=== PATIENT | female | born 1940 | race Hispanic/Latino ===

== ENCOUNTER → 2017-08-23 | Outpatient (CLI) | payer OTHER ==
[~2017-08-23] MED LIST: ACET-66 PO; BENA40TA9 PO; CEPH500T PO; CHOL200074 PO; CINN500C PO; CRAN200C PO; FLUT9.9S NS; FURO40TA5 PO; GABA-531 PO; GLIM4TAB3 PO; LATA2.5D2 OU; OMEP20CA10 PO; OXYB5POW MC; POTA99TA25 PO; PRED10TA3 PO; SIMV10TA6 PO; TRAM50TA4 PO; amlodipine PO
== END | disposition home or self-care (01) ==
LOC: RAH 09:45
PROVIDERS: ATTEND Family Medicine
DX: I51.7 Cardiomegaly (principal); R06.02 Shortness of breath
CPT/HCPCS: 93306

== ENCOUNTER → 2018-02-02 | Outpatient (CLI) | payer OTHER | END | disposition home or self-care (01) | LOC: RAH 11:06 | PROVIDERS: ATTEND Family Medicine | DX: Z12.31 Encounter for screening mammogram for malignant neoplasm of breast (principal) | CPT/HCPCS: 77067 ==

== ENCOUNTER 2018-12-25 19:40 | Inpatient (IN) | payer OTHER ==
[~2018-12-25] VITALS: Ht 160 cm; Wt 98.7 kg
[~2018-12-25 19:40] MED LIST changes: -GLIM4TAB3 PO; +GLIM4TAB5 PO; +OMEP-50 PO; -OMEP20CA10 PO; -SIMV10TA6 PO; +SIMV10TA97 PO
[2018-12-25 20:13] LABS: APPEARANCE,URINE CLOUDY (CLEAR); BILIRUBIN,URINE NEGATIVE (NEGATIVE); COLOR,URINE OTHER (YELLOW); GLUCOSE, URINE (UA) NEGATIVE (NEGATIVE); KETONES,URINE NEGATIVE (NEGATIVE); LEUKOCYTE ESTERASE ,URINE LARGE (NEGATIVE); NITRATE,URINE POSITIVE (NEGATIVE); OCCULT BLOOD,URINE LARGE (NEGATIVE); PROTEIN,URINE 100 mg/dL (NEGATIVE); UROBILINOGEN,URINE 0.2 mg/dL (0.2-1.0)
[2018-12-25] MEDS ORDERED: SODIUM CHLORIDE 0.9% 1000ML 1,000 ML IV ONE (20:22)
[2018-12-25] MEDS ORDERED: KETOROLAC TROMETHAMINE 30MG/ML ONE (20:22)
[2018-12-25 20:27] LABS: BASOPHILS % (AUTO) 0.4 % (0.0-5.0); EOSINOPHILS % (AUTO) 0.3 % (0.0-8.0); HEMATOCRIT 32.8 % (36-48); LYMPHOCYTES % (AUTO) 12.9 % (21.0-51.0); MEAN CORPUSCULAR HEMOGLOBIN 30.2 pg (27.0-33.0); MEAN CORPUSCULAR HGB CONC 34.2 g/dL (32.0-36.0); MEAN CORPUSCULAR VOLUME 88.2 fL (79-99); MONOCYTES % (AUTO) 8.6 % (3.0-13.0); NEUTROPHILS % (AUTO) 77.8 % (40.0-77.0); PLATELET COUNT (AUTO) 246 K/uL (130-400); RED BLOOD CELL COUNT(AUTO) 3.72 MIL/uL (4.00-5.50); RED CELL DISTRIBUTION WIDTH 13.3 % (11.0-15.5); WHITE BLOOD COUNT (AUTO) 12.6 K/uL (4.8-10.8)
[2018-12-25 20:41] LABS: CARBON DIOXIDE 21 mmol/L (21-32); CHLORIDE 104 mmol/L (101-111); CREATININE 1.5 mg/dL (0.5-1.5); GLOMERULAR FILTR. RATE CALC 36 mL/min (>60); GLUCOSE,RANDOM 254 mg/dL (70-105); POTASSIUM 4.6 mmol/L (3.5-5.1); SODIUM SERUM 138 mmol/L (136-145); UREA NITROGEN, BLOOD 47 mg/dL (7-18)
[2018-12-25] MEDS ORDERED: CEFTRIAXONE SODIUM 2 GM VIAL ONE (20:41)
[2018-12-25 20:49] LABS: BACTERIA,URINE Moderate /HPF (None Seen); MUCUS,URINE Few LPF (None Seen); SQUAMOUS EPITHELIAL CELL,UR 0-2 /HPF (0-2); WBC,URINE 26-50 /HPF (0-1)
[2018-12-25 20:53] LABS: ALANINE AMINOTRANSFERASE 24 U/L (12-78); ALBUMIN 3.5 g/dL (3.5-5.0); ASPARTATE AMINOTRANSFERASE 22 U/L (10-37); BILIRUBIN,TOTAL 0.6 mg/dL (0.2-1.0); CREATINE KINASE, TOTAL 139 U/L (21-232); MYOGLOBIN 233 ng/mL (10-92); TOTAL PROTEIN, SERUM 7.4 g/dL (6.0-8.3); TROPONIN I < 0.04 ng/mL (0.00-0.06)
[2018-12-25 20:54] LABS: INR 0.98 (0.85-1.15); PARTIAL THROMBOPLASTIN TIME 30.2 SEC (26.3-35.5); PROTHROMBIN TIME 10.3 SEC (9.6-11.6)
[2018-12-25] MEDS ORDERED: VANCOMYCIN 1GM+NS 250ML 250 ML IV ONE (21:42)
[2018-12-25 22:45] VITALS: BP 154/63
[2018-12-25] MEDS ORDERED: ACETAMINOPHEN 325 MG TAB PO PRN (22:45)
[2018-12-25] MEDS ORDERED: ZOSYN 3.375GM+NS 50ML 50 ML IV ONE (22:58)
[2018-12-25] MEDS: SODIUM CHLORIDE 0.9% 1000ML 1,000 ML IV SCH (23:28)
[2018-12-26 03:41] VITALS: BP 158/73
[2018-12-26 08:00] VITALS: BP 161/71
[2018-12-26] MEDS ORDERED: ACET-2743 PO (11:27)
[2018-12-26] MEDS ORDERED: ASPI-555 PO (11:27)
[2018-12-26] MEDS ORDERED: GABA-529 PO (11:27)
[2018-12-26] MEDS ORDERED: TURM500C9 PO (11:27)
[2018-12-26] MEDS: SODIUM CHLORIDE 0.9% 1000ML 1,000 ML IV SCH ×3 (11:35→23:49)
[2018-12-26 12:00] VITALS: BP 166/91
[2018-12-26] MEDS ORDERED: NITROGLYCERIN 0.4 MG SL TAB SL PRN (12:15)
[2018-12-26] MEDS ORDERED: POTASSIUM CHLORIDE 20MEQ/100ML 100 ML IV PRN (12:15)
[2018-12-26] MEDS ORDERED: ONDANSETRON HCL 4 MG/2 ML VIAL IV PRN (12:15)
[2018-12-26] MEDS ORDERED: LACTULOSE 20 GM/30 ML UDCUP PO PRN (12:15)
[2018-12-26] MEDS ORDERED: MAG HYDROX/AL HYDROX/SIMETH ES 30 ML SUSP UDCUP PO PRN (12:15)
[2018-12-26] MEDS ORDERED: LIDOCAINE HCL-MPF 1% 2ML VIAL IV PRN (12:15)
[2018-12-26] MEDS ORDERED: ZOLPIDEM TARTRATE 5 MG TAB PO PRN (12:15)
[2018-12-26] MEDS ORDERED: GUAIFENESIN-DM 200/20 MG 10 ML PO PRN (12:15)
[2018-12-26] MEDS ORDERED: POTASSIUM CHLORIDE 10% ELIXIR 20 MEQ/15 ML UDCUP PO PRN (12:15)
[2018-12-26] MEDS ORDERED: DiphenhydrAMINE HCL 50 MG/ML VIAL IV PRN (12:15)
[2018-12-26] MEDS ORDERED: GLUCAGON 1MG KIT 1 MG ML IM PRN (12:15)
[2018-12-26] MEDS ORDERED: DEXTROSE 50%-WATER 50 ML DISP.SYRIN IV PRN (12:15)
[2018-12-26 16:00] VITALS: BP 148/93
[2018-12-26] MEDS: CEFTRIAXONE SODIUM 1 GM IV SCH (16:03)
[2018-12-26] MEDS: PHENAZOPYRIDINE HCL 200 MG TABLET PO SCH ×2 (16:03→20:57)
--- NOTE | 2018-12-26 16:07 | NUR ---
INITIAL MET [facility] AT BEDSIDE; AAOX3, NO DME, DRIVES, INDP, LIVES WITH DAUGHTER BRANDON WHO WILL PROVIDE TRANSPORT PT W HX OF RECURRENT UTI'S ADVISED PT RE AIU. WILL FOLLOW Addendum: 12/26/18 at 1727 by PIERCE JEREZ RN CM Amended: Links added.
[2018-12-26] MEDS: INSULIN HUMULIN R 100 UNIT/ML 3ML SQ SCH ×2 (16:30→20:18)
[2018-12-26 19:15] VITALS: BP 153/52
[2018-12-26] MEDS: DOCUSATE SODIUM 100 MG CAP PO SCH (20:58)
[2018-12-26] MEDS: HEPARIN SODIUM 5000UNIT/ML 1ML VIAL SQ SCH (21:04)
[2018-12-26 23:28] VITALS: BP 128/64
[2018-12-27 03:25] VITALS: BP 138/58
[2018-12-27 05:28] LABS: BASOPHILS % (AUTO) 0.5 % (0.0-5.0); EOSINOPHILS % (AUTO) 1.1 % (0.0-8.0); HEMATOCRIT 28.5 % (36-48); LYMPHOCYTES % (AUTO) 25.6 % (21.0-51.0); MEAN CORPUSCULAR HEMOGLOBIN 30.1 pg (27.0-33.0); MEAN CORPUSCULAR HGB CONC 33.9 g/dL (32.0-36.0); MEAN CORPUSCULAR VOLUME 88.7 fL (79-99); MONOCYTES % (AUTO) 9.9 % (3.0-13.0); NEUTROPHILS % (AUTO) 62.9 % (40.0-77.0); PLATELET COUNT (AUTO) 222 K/uL (130-400); RED BLOOD CELL COUNT(AUTO) 3.21 MIL/uL (4.00-5.50); RED CELL DISTRIBUTION WIDTH 13.5 % (11.0-15.5); WHITE BLOOD COUNT (AUTO) 10.4 K/uL (4.8-10.8)
[2018-12-27 05:41] LABS: HEMOGLOBIN A1C 6.9 % (4.0-6.0)
[2018-12-27 05:55] LABS: CREATININE 1.3 mg/dL (0.5-1.5); POTASSIUM 3.6 mmol/L (3.5-5.1)
[2018-12-27] MEDS: INSULIN HUMULIN R 100 UNIT/ML 3ML SQ SCH ×4 (06:57→21:00)
[2018-12-27 08:00] VITALS: BP 149/65
--- NOTE | 2018-12-27 08:05 | NUR ---
Called CT Scan regarding CT abd/pelvis with and without contrast to notify that patient had 1 glass of water to drink this morning and if okay to proceed with exam or need to delay with NPO status. 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
[2018-12-27] MEDS ORDERED: IOHEXOL-350 75 ML VIAL IV ONE (08:22)
[2018-12-27 12:00] VITALS: BP 133/71
[2018-12-27] MEDS: FAMOTIDINE 20MG TAB 20 MG TAB PO SCH (12:00)
[2018-12-27] MEDS: PHENAZOPYRIDINE HCL 200 MG TABLET PO SCH ×3 (12:00→21:30)
[2018-12-27] MEDS: DOCUSATE SODIUM 100 MG CAP PO SCH ×2 (12:01→21:30)
[2018-12-27] MEDS: HEPARIN SODIUM 5000UNIT/ML 1ML VIAL SQ SCH ×2 (12:05→21:31)
[2018-12-27] MEDS: CEFTRIAXONE SODIUM 1 GM IV SCH (12:07)
--- NOTE | 2018-12-27 14:57 | NUR ---
Per Dr. Morgan with [facility], notify Dr. Connolly of Ct results and for recommendations of antibiotics for discharge.
[2018-12-27 16:00] VITALS: BP 187/80
[2018-12-27] MEDS: HYDRALAZINE HCL 20 MG/ML VIAL IV PRN (16:26)
--- NOTE | 2018-12-27 17:30 | NUR ---
Dr. Connolly stated antibiotic recommendation to come from [facility]. Anuradha AUTOCAD OPERATOR for [facility] notified and will put in orders for discharge and antibiotics. Family notified and had concerns of results of CT Scan. Requested that results be provided prior to discharge. Anuradha notified and stated that Dr. Connolly, ordering physician for CT Scan, could provide results to patient and family. Family in agreement.
--- NOTE | 2018-12-27 18:28 | NUR ---
Received notification from Anuradha Ricci NP, that after speaking with Dr. Morgan, to hold discharge at this time.
[2018-12-27 19:20] VITALS: BP 160/72
[2018-12-27] MEDS: POTASSIUM CHLORIDE 20 MEQ ERTAB PO PRN ×2 (21:30→22:50)
[2018-12-27] MEDS: SODIUM CHLORIDE 0.9% 1000ML 1,000 ML IV SCH (21:38)
[2018-12-28 00:11] VITALS: BP 138/69
[2018-12-28 04:30] VITALS: BP 159/80
[2018-12-28 05:59] LABS: MEAN CORPUSCULAR HEMOGLOBIN 30.6 pg (27.0-33.0); MEAN CORPUSCULAR HGB CONC 34.4 g/dL (32.0-36.0); MEAN CORPUSCULAR VOLUME 88.8 fL (79-99); PLATELET COUNT (AUTO) 248 K/uL (130-400); RED CELL DISTRIBUTION WIDTH 13.2 % (11.0-15.5); WHITE BLOOD COUNT (AUTO) 10.2 K/uL (4.8-10.8)
[2018-12-28 06:01] LABS: CREATININE 1.1 mg/dL (0.5-1.5); POTASSIUM 4.5 mmol/L (3.5-5.1)
[2018-12-28 08:00] VITALS: BP 159/77
[2018-12-28] MEDS: DOCUSATE SODIUM 100 MG CAP PO SCH (10:35)
[2018-12-28] MEDS: FAMOTIDINE 20MG TAB 20 MG TAB PO SCH (10:35)
[2018-12-28] MEDS: PHENAZOPYRIDINE HCL 200 MG TABLET PO SCH (10:35)
[2018-12-28] MEDS: HEPARIN SODIUM 5000UNIT/ML 1ML VIAL SQ SCH (10:37)
[2018-12-28] MEDS: SODIUM CHLORIDE 0.9% 1000ML 1,000 ML IV SCH (10:51)
--- NOTE | 2018-12-28 11:01 | NUR ---
1033 had IM Letter signed by pt,faxed IM Letter to [id number] and placed in chart under consent tab
[2018-12-28 12:00] VITALS: BP 155/69
[2018-12-28] MEDS ORDERED: SODIUM CHLORIDE 0.9% 50 ML IV ONE (12:16)
[2018-12-28] MEDS: CEFTRIAXONE SODIUM 1 GM IV SCH (13:22)
[2018-12-28 16:00] VITALS: BP 174/76
[2018-12-28] MEDS: HYDRALAZINE HCL 20 MG/ML VIAL IV PRN (17:22)
--- NOTE | 2018-12-28 19:05 | NUR ---
Discharge instructions reviewed, medication order instructions provided and due to being after hours, follow up appointments were not able to be scheduled. Patient and daughter provided Phone numbers and addresses for Dr. Danita Wild for follow up to be scheduled in 2-3 days, Dr. Vitaliy Connolly for follow up to be scheduled in [address] Natty Hilliard for consultation to be scheduled for 1 week. Patient and daughter verbalized understanding of instructions and importance of following up with all physicians as ordered. Patient instructed to complete full course of antibiotic therapy as prescribed for 14 days. Patient assisted downstairs via wheelchair accompanied by daughter.
== END 2018-12-28 19:00 | disposition home or self-care (01) | DRG 872 ==
LOC: EDH 19:40 → EDHIP 21:47 → OBSVTOIN 21:47 → 3BH 22:29
PROVIDERS: ADMIT Internal Medicine Pulmonary Disease; ATTEND Internal Medicine Pulmonary Disease
DX: A41.50 Gram-negative sepsis, unspecified (principal); N13.6 Pyonephrosis; N30.21 Other chronic cystitis with hematuria; N18.9 Chronic kidney disease, unspecified; E11.22 Type 2 diabetes mellitus with diabetic chronic kidney disease; I12.9 Hypertensive chronic kidney disease with stage 1 through stage 4 chronic kidney disease, or unspecified chronic kidney disease; E78.5 Hyperlipidemia, unspecified; K21.9 Gastro-esophageal reflux disease without esophagitis; H40.9 Unspecified glaucoma; Z96.659 Presence of unspecified artificial knee joint; E78.00 Pure hypercholesterolemia, unspecified; E66.9 Obesity, unspecified; B96.20 Unspecified Escherichia coli [E. coli] as the cause of diseases classified elsewhere; N83.209 Unspecified ovarian cyst, unspecified side; Z87.440 Personal history of urinary (tract) infections; Z90.710 Acquired absence of both cervix and uterus; Z98.51 Tubal ligation status; Z68.38 Body mass index [BMI] 38.0-38.9, adult; Z88.1 Allergy status to other antibiotic agents; Z88.5 Allergy status to narcotic agent; Z88.8 Allergy status to other drugs, medicaments and biological substances; Z83.3 Family history of diabetes mellitus; Z79.899 Other long term (current) drug therapy; Z79.84 Long term (current) use of oral hypoglycemic drugs; Z79.82 Long term (current) use of aspirin
CPT/HCPCS: 36415; 70450; 71045; 74178; 80048; 80053; 81001; 82550; 82948; 83036; 83605; 83874; 84145; 84484; 85025; 85027; 85610; 85730; 87040; 87077; 87088; 87186; 93005; G0378; J0360; J0696; J1644; J1885; J2405; J2543; J3370; J7030; Q9967

== ENCOUNTER 2020-02-08 13:58 | Observation (INO) | payer MEDICARE, OTHER ==
[~2020-02-08 13:58] MED LIST changes: -ACET-66 PO; +ASPI-556 PO; -CEPH500T PO; -CRAN200C PO; -FURO40TA5 PO; +GABA-529 PO; -GABA-531 PO; +GLIM4TAB36 PO; -GLIM4TAB5 PO; +LATA2.5D14 OU; -LATA2.5D2 OU; -OMEP-50 PO; +OMEP20CA12 PO; -POTA99TA25 PO; -PRED10TA3 PO; -TRAM50TA4 PO; +TURM500C9 PO; -amlodipine PO
[2020-02-08 14:43] LABS: BASOPHILS % (AUTO) 0.5 % (0.0-5.0); EOSINOPHILS % (AUTO) 0.6 % (0.0-8.0); HEMATOCRIT 33.9 % (36-48); LYMPHOCYTES % (AUTO) 22.7 % (21.0-51.0); MEAN CORPUSCULAR HGB CONC 33.6 g/dL (32.0-36.0); MEAN CORPUSCULAR VOLUME 89.2 fL (79-99); MONOCYTES % (AUTO) 6.8 % (3.0-13.0); PLATELET COUNT (AUTO) 173 K/uL (130-400); RED CELL DISTRIBUTION WIDTH 12.5 % (11.0-15.5); WHITE BLOOD COUNT (AUTO) 8.1 K/uL (4.8-10.8)
[2020-02-08 14:55] LABS: CREATININE 1.4 mg/dL (0.5-1.5)
[2020-02-08 14:59] LABS: ALBUMIN 3.7 g/dL (3.5-5.0); BILIRUBIN,TOTAL 0.5 mg/dL (0.2-1.0); TOTAL PROTEIN, SERUM 6.5 g/dL (6.0-8.3)
[2020-02-08 15:19] LABS: INR 0.93 (0.85-1.15)
[2020-02-08 15:20] LABS: PARTIAL THROMBOPLASTIN TIME 26.4 SEC (26.3-35.5)
[2020-02-08] MEDS ORDERED: ACETAMINOPHEN 325 MG TAB PO PRN ×4 (18:00→18:15)
[2020-02-08] MEDS ORDERED: ONDANSETRON HCL 4 MG/2 ML VIAL IVP PRN (18:00)
[2020-02-08] MEDS ORDERED: ONDANSETRON HCL 4 MG/2 ML VIAL IV PRN (18:15)
[2020-02-08] MEDS ORDERED: DIPHENHYDRAMINE HCL 25 MG CAPSULE PO PRN (18:15)
[2020-02-08] MEDS ORDERED: NITROGLYCERIN 0.4 MG SL TAB SL PRN (18:15)
[2020-02-08] MEDS ORDERED: ACETAMINOPHEN-CODEINE 300/30MG TAB PO PRN ×2 (18:15→18:30)
[2020-02-08] MEDS ORDERED: GUAIFENESIN-DM 200/20 MG 10 ML PO PRN (18:15)
[2020-02-08] MEDS ORDERED: MAG HYDROX/AL HYDROX/SIMETH ES 30 ML SUSP UDCUP PO PRN (18:15)
[2020-02-08] MEDS ORDERED: ASPIRIN 81MG TAB.CHEW ONE (18:20)
[2020-02-08] MEDS ORDERED: MORPHINE SULFATE 2 MG/ML 1ML SYG IVP PRN (18:30)
[2020-02-08 19:19] LABS: CREATINE KINASE, TOTAL 97 U/L (21-232); MYOGLOBIN 116 ng/mL (10-92); TROPONIN I < 0.04 ng/mL (0.00-0.06)
[2020-02-08] MEDS ORDERED: FAMOTIDINE 20MG TAB 20 MG TAB ONE (20:01)
[2020-02-08] MEDS ORDERED: METOPROLOL TARTRATE 25 MG TAB ONE (20:01)
[2020-02-08] MEDS ORDERED: METOPROLOL TARTRATE 25 MG TAB PO SCH ×2 (21:00)
[2020-02-08] MEDS ORDERED: FAMOTIDINE 20MG TAB 20 MG TAB PO SCH (21:00)
[2020-02-09] MEDS ORDERED: ASPIRIN 81 MG EC TAB PO SCH (09:00)
[2020-02-09] MEDS ORDERED: ASPIRIN 81MG TAB.CHEW PO SCH (09:00)
[2020-02-09] MEDS ORDERED: ENOXAPARIN SODIUM 40 MG/0.4 ML SYRINGE SQ SCH (09:00)
== END 2020-02-08 21:28 | disposition left against medical advice (07) ==
LOC: EDH 13:58 → INTOOBSV 17:20 → EDHIP 17:20
PROVIDERS: ADMIT Hospitalist; ATTEND Hospitalist
DX: R07.89 Other chest pain (principal); E11.65 Type 2 diabetes mellitus with hyperglycemia; E66.01 Morbid (severe) obesity due to excess calories; I10 Essential (primary) hypertension; E78.00 Pure hypercholesterolemia, unspecified; Z90.710 Acquired absence of both cervix and uterus; Z79.82 Long term (current) use of aspirin; Z79.84 Long term (current) use of oral hypoglycemic drugs; Z79.899 Other long term (current) drug therapy; Z88.5 Allergy status to narcotic agent; Z88.1 Allergy status to other antibiotic agents; Z88.8 Allergy status to other drugs, medicaments and biological substances
CPT/HCPCS: 36415; 71045; 80053; 82550; 83874; 84484 ×2; 85025; 85610; 85730; 93005 ×2; 99285; G0378 ×3

== ENCOUNTER → 2020-03-27 | Outpatient (CLI) | payer MEDICARE ==
[~2020-03-27] MED LIST changes: +REGADENOSON 0.4 MG/5 ML PF SYG IVP SCH
== END | disposition home or self-care (01) ==
LOC: RAH 08:33
PROVIDERS: ATTEND Internal Medicine
DX: I10 Essential (primary) hypertension (principal); R06.09 Other forms of dyspnea; R53.83 Other fatigue; R07.9 Chest pain, unspecified
CPT/HCPCS: 78452; 93017; 96374; A9500 ×2; J2785

== ENCOUNTER → 2020-03-28 | Outpatient (CLI) | payer MEDICARE ==
[~2020-03-28] MED LIST changes: -REGADENOSON 0.4 MG/5 ML PF SYG IVP SCH
== END | disposition home or self-care (01) ==
LOC: RAH 09:56
PROVIDERS: ATTEND Internal Medicine
DX: R01.1 Cardiac murmur, unspecified (principal)
CPT/HCPCS: 93306; 93356

== ENCOUNTER 2020-09-06 19:23 | Emergency (ER) | payer MEDICARE ==
[~2020-09-06] VITALS: Ht 152.4 cm; Wt 102.5 kg
[2020-09-06 19:25] VITALS: BP 200/73
[2020-09-06 20:03] LABS: BASOPHILS % (AUTO) 0.5 % (0.0-5.0); EOSINOPHILS % (AUTO) 2.9 % (0.0-8.0); HEMATOCRIT 34.8 % (36-48); LYMPHOCYTES % (AUTO) 29.4 % (21.0-51.0); MEAN CORPUSCULAR HEMOGLOBIN 29.6 pg (27.0-33.0); MEAN CORPUSCULAR HGB CONC 33.6 g/dL (32.0-36.0); MEAN CORPUSCULAR VOLUME 88.1 fL (79-99); MONOCYTES % (AUTO) 8.3 % (3.0-13.0); NEUTROPHILS % (AUTO) 58.4 % (40.0-77.0); PLATELET COUNT (AUTO) 179 K/uL (130-400); RED BLOOD CELL COUNT(AUTO) 3.95 MIL/uL (4.00-5.50); RED CELL DISTRIBUTION WIDTH 12.7 % (11.0-15.5); WHITE BLOOD COUNT (AUTO) 7.3 K/uL (4.8-10.8)
[2020-09-06 20:13] LABS: CREATININE 1.4 mg/dL (0.5-1.5); POTASSIUM 4.3 mmol/L (3.5-5.1)
[2020-09-06 20:16] LABS: APPEARANCE,URINE Clear (CLEAR); BILIRUBIN,URINE Negative (NEGATIVE); COLOR,URINE Yellow (YELLOW); GLUCOSE, URINE (UA) Negative (NEGATIVE); KETONES,URINE Negative (NEGATIVE); LEUKOCYTE ESTERASE ,URINE Trace (NEGATIVE); NITRATE,URINE Negative (NEGATIVE); OCCULT BLOOD,URINE Small (NEGATIVE); PROTEIN,URINE 300 mg/dL (NEGATIVE); UROBILINOGEN,URINE 0.2 mg/dL (0.2-1.0)
[2020-09-06 20:18] LABS: ALBUMIN 3.5 g/dL (3.5-5.0); BILIRUBIN,TOTAL 0.5 mg/dL (0.2-1.0); TOTAL PROTEIN, SERUM 6.4 g/dL (6.0-8.3)
[2020-09-06 20:22] LABS: INR 0.98 (0.85-1.15); PROTHROMBIN TIME 10.7 SEC (9.6-11.6)
[2020-09-06 20:27] LABS: BACTERIA,URINE Few /HPF (None Seen); WBC,URINE 0-1 /HPF (0-1)
[2020-09-06 20:29] LABS: B-TYPE NATRIURETIC PEPTIDE 222 pg/mL (0-100)
[2020-09-06 20:46] VITALS: BP 159/86
[2020-09-06] MEDS ORDERED: CLIN300C10 PO (21:07)
[2020-09-06] MEDS ORDERED: CLINDAMYCIN IVPB 600MG/50ML 50 ML IV SCH (21:30)
== END 2020-09-06 22:09 | disposition home or self-care (01) ==
LOC: EDH 19:56
DX: L03.116 Cellulitis of left lower limb (principal); R80.9 Proteinuria, unspecified; I10 Essential (primary) hypertension; E11.9 Type 2 diabetes mellitus without complications; E78.00 Pure hypercholesterolemia, unspecified; Z96.652 Presence of left artificial knee joint; Z79.899 Other long term (current) drug therapy; Z79.84 Long term (current) use of oral hypoglycemic drugs; Z79.82 Long term (current) use of aspirin; Z98.890 Other specified postprocedural states; Z88.5 Allergy status to narcotic agent; Z88.1 Allergy status to other antibiotic agents; Z88.8 Allergy status to other drugs, medicaments and biological substances
CPT/HCPCS: 36415; 80053; 81001; 83880; 84484; 85025; 85610; 93971; 96365; 99284; J3490

== ENCOUNTER 2020-10-23 03:35 | Inpatient (IN) | payer MEDICARE ==
[~2020-10-23] VITALS: Ht 152.4 cm; Wt 102.5 kg
[2020-10-23] VITALS (10 sets, daily range): BP systolic 131–177; BP diastolic 48–75
[~2020-10-23 03:35] MED LIST changes: +CLIN300C10 PO
[2020-10-23] MEDS ORDERED: PROCHLORPERAZINE EDISYLATE 5 MG/ML 2 ML VIAL IVP ONE (04:00)
[2020-10-23] MEDS ORDERED: 0.9%NACL 1000ML 1,000 ML IV ONE (04:00)
[2020-10-23] MEDS ORDERED: FAMOTIDINE 20MG VIAL IV ONE (04:00)
[2020-10-23] MEDS ORDERED: ONDANSETRON 4MG INJ IVP ONE (04:00)
[2020-10-23 04:02] LABS: BASOPHILS % (AUTO) 0.3 % (0.0-5.0); EOSINOPHILS % (AUTO) 1.2 % (0.0-8.0); HEMATOCRIT 36.4 % (36-48); LYMPHOCYTES % (AUTO) 29.9 % (21.0-51.0); MEAN CORPUSCULAR HGB CONC 34.6 g/dL (32.0-36.0); MEAN CORPUSCULAR VOLUME 86.7 fL (79-99); MONOCYTES % (AUTO) 5.6 % (3.0-13.0); NEUTROPHILS % (AUTO) 62.5 % (40.0-77.0); PLATELET COUNT (AUTO) 173 K/uL (130-400); RED CELL DISTRIBUTION WIDTH 12.7 % (11.0-15.5); WHITE BLOOD COUNT (AUTO) 12.8 K/uL (4.8-10.8)
[2020-10-23 04:09] LABS: CREATININE 1.5 mg/dL (0.5-1.5); POTASSIUM 4.1 mmol/L (3.5-5.1)
[2020-10-23 04:15] LABS: ALBUMIN 3.6 g/dL (3.5-5.0); BILIRUBIN,TOTAL 0.7 mg/dL (0.2-1.0); TOTAL PROTEIN, SERUM 6.5 g/dL (6.0-8.3)
[2020-10-23] MEDS ORDERED: PROCHLORPERAZINE 10MG/2ML INJ ONE (04:17)
[2020-10-23] MEDS ORDERED: LACTULOSE 20 GM/30 ML UDCUP PO PRN (06:00)
[2020-10-23] MEDS ORDERED: ACETAMINOPHEN 325 MG TAB PO PRN ×2 (06:00)
[2020-10-23] MEDS: 0.9%NACL 1000ML 1,000 ML IV SCH ×3 (06:28→21:14)
[2020-10-23] MEDS: INSULIN HUMULIN R 100 UNIT/ML 3ML SQ SCH ×3 (06:30→18:41)
[2020-10-23 06:53] LABS: APPEARANCE,URINE Clear (CLEAR); BILIRUBIN,URINE Negative (NEGATIVE); COLOR,URINE Yellow (YELLOW); GLUCOSE, URINE (UA) 500 mg/dL (NEGATIVE); KETONES,URINE Trace mg/dL (NEGATIVE); LEUKOCYTE ESTERASE ,URINE Negative (NEGATIVE); NITRATE,URINE Negative (NEGATIVE); OCCULT BLOOD,URINE Small (NEGATIVE); PH,URINE 6.5 (5.0-8.0); PROTEIN,URINE POS 2+ mg/dL (NEGATIVE); UROBILINOGEN,URINE 0.2 mg/dL (0.2-1.0)
[2020-10-23 06:54] LABS: CHOLESTEROL 191 mg/dL (<200); HDL CHOLESTEROL 54 mg/dL (35-85); LDL DIRECT 116 mg/dL (0-99); TRIGLYCERIDES 146 mg/dL (30-200)
[2020-10-23 07:15] LABS: RBC,URINE 0-1 /HPF (0-1); WBC,URINE 0-1 /HPF (0-1)
[2020-10-23 07:16] LABS: BACTERIA,URINE Rare /HPF (None Seen); SQUAMOUS EPITHELIAL CELL,UR Rare /HPF (0-2)
[2020-10-23] MEDS: ENOXAPARIN SODIUM 40 MG/0.4 ML SYRINGE SQ SCH (10:12)
[2020-10-23] MEDS: FAMOTIDINE 20MG VIAL IV SCH ×2 (10:12→20:50)
[2020-10-23] MEDS: KETOROLAC 15MG/ML VIAL (15MG/ML) IV PRN (13:35)
[2020-10-23] MEDS ORDERED: AMLO-257 PO (16:18)
[2020-10-23] MEDS ORDERED: OMEP40CA21 PO (16:19)
[2020-10-23] MEDS ORDERED: OXYB5TAB15 PO (16:22)
[2020-10-23] MEDS ORDERED: METO-391 PO (16:23)
[2020-10-23] MEDS ORDERED: COFF1CAP3 PO (16:24)
[2020-10-23] MEDS: ONDANSETRON 4MG INJ IV PRN (21:13)
[2020-10-24 01:32] VITALS: BP 134/49
[2020-10-24] MEDS: KETOROLAC 15MG/ML VIAL (15MG/ML) IV PRN ×2 (03:53→11:55)
[2020-10-24 03:56] VITALS: BP 174/70
[2020-10-24] MEDS: INSULIN HUMULIN R 100 UNIT/ML 3ML SQ SCH ×4 (06:00→18:00)
[2020-10-24 06:23] VITALS: BP 100/50
[2020-10-24] MEDS: 0.9%NACL 1000ML 1,000 ML IV SCH ×3 (06:23→22:00)
[2020-10-24 07:00] LABS: BASOPHILS % (AUTO) 0.2 % (0.0-5.0); EOSINOPHILS % (AUTO) 0.9 % (0.0-8.0); HEMATOCRIT 36.2 % (36-48); LYMPHOCYTES % (AUTO) 5.9 % (21.0-51.0); MEAN CORPUSCULAR HEMOGLOBIN 29.6 pg (27.0-33.0); MONOCYTES % (AUTO) 5.5 % (3.0-13.0); NEUTROPHILS % (AUTO) 86.5 % (40.0-77.0); PLATELET COUNT (AUTO) 159 K/uL (130-400); RED BLOOD CELL COUNT(AUTO) 4.16 MIL/uL (4.00-5.50); RED CELL DISTRIBUTION WIDTH 13.2 % (11.0-15.5); WHITE BLOOD COUNT (AUTO) 25.9 K/uL (4.8-10.8)
[2020-10-24 07:11] LABS: CREATININE 2.2 mg/dL (0.5-1.5); POTASSIUM 4.3 mmol/L (3.5-5.1)
[2020-10-24] MEDS: FAMOTIDINE 20MG VIAL IV SCH ×2 (09:00→20:55)
[2020-10-24] MEDS: ENOXAPARIN SODIUM 40 MG/0.4 ML SYRINGE SQ SCH (09:00)
[2020-10-24 09:24] VITALS: BP 125/51
[2020-10-24] MEDS ORDERED: MORPHINE 2 MG SYG ONE (10:35)
[2020-10-24] MEDS ORDERED: CEFTRIAXONE 1G VIAL IVP SCH (11:30)
[2020-10-24] MEDS: ONDANSETRON 4MG INJ IV PRN ×2 (11:46→15:33)
[2020-10-24 12:09] LABS: CREATININE 2.2 mg/dL (0.5-1.5); POTASSIUM 4.8 mmol/L (3.5-5.1)
[2020-10-24 12:14] LABS: ALBUMIN 2.7 g/dL (3.5-5.0); BILIRUBIN,TOTAL 1.5 mg/dL (0.2-1.0); TOTAL PROTEIN, SERUM 5.8 g/dL (6.0-8.3)
[2020-10-24 13:31] LABS: HEMOGLOBIN A1C 7.9 % (4.0-6.0)
[2020-10-24] MEDS: METRONIDAZOLE 500MG/100ML BAG 100 ML IVPB SCH ×2 (14:33→22:49)
[2020-10-24 14:53] VITALS: BP 139/55
[2020-10-24] MEDS: MORPHINE 2 MG SYG IVP PRN (15:35)
[2020-10-24] MEDS: Vitamin B Complex/Vit C/Folic Acid PO SCH (16:04)
[2020-10-24 20:09] VITALS: BP 134/44
[2020-10-25] VITALS (11 sets, daily range): BP systolic 141–209; BP diastolic 55–102
[2020-10-25 05:12] LABS: BASOPHILS % (AUTO) 0.2 % (0.0-5.0); EOSINOPHILS % (AUTO) 1.1 % (0.0-8.0); LYMPHOCYTES % (AUTO) 6.5 % (21.0-51.0); MEAN CORPUSCULAR HEMOGLOBIN 29.9 pg (27.0-33.0); MEAN CORPUSCULAR HGB CONC 33.2 g/dL (32.0-36.0); MEAN CORPUSCULAR VOLUME 89.9 fL (79-99); MONOCYTES % (AUTO) 4.8 % (3.0-13.0); NEUTROPHILS % (AUTO) 81.5 % (40.0-77.0); PLATELET COUNT (AUTO) 153 K/uL (130-400); RED BLOOD CELL COUNT(AUTO) 3.78 MIL/uL (4.00-5.50); RED CELL DISTRIBUTION WIDTH 13.5 % (11.0-15.5); WHITE BLOOD COUNT (AUTO) 24.6 K/uL (4.8-10.8)
[2020-10-25 05:39] LABS: ALANINE AMINOTRANSFERASE 62 U/L (12-78); ALBUMIN 2.3 g/dL (3.5-5.0); ASPARTATE AMINOTRANSFERASE 25 U/L (10-37); BILIRUBIN,DIRECT 0.5 mg/dL (0.0-0.3); CARBON DIOXIDE 21 mmol/L (21-32); CHLORIDE 109 mmol/L (101-111); GLOMERULAR FILTR. RATE CALC 26 mL/min (>60); GLUCOSE,RANDOM 196 mg/dL (70-105); PHOSPHORUS 2.9 mg/dL (2.5-4.9); SODIUM SERUM 143 mmol/L (136-145); TOTAL PROTEIN, SERUM 5.4 g/dL (6.0-8.3); UREA NITROGEN, BLOOD 42 mg/dL (7-18)
[2020-10-25 05:43] LABS: LIPASE < 50 U/L (114-286)
[2020-10-25] MEDS: METRONIDAZOLE 500MG/100ML BAG 100 ML IVPB SCH ×3 (05:44→22:03)
[2020-10-25] MEDS: INSULIN HUMULIN R 100 UNIT/ML 3ML SQ SCH ×4 (05:45→18:00)
[2020-10-25] MEDS: KETOROLAC 15MG/ML VIAL (15MG/ML) IV PRN (06:38)
[2020-10-25] MEDS: AMLODIPINE 5 MG TAB PO SCH ×2 (09:00→16:40)
[2020-10-25] MEDS: CHOLECALCIFEROL PO SCH (09:00)
[2020-10-25] MEDS: ENOXAPARIN SODIUM 40 MG/0.4 ML SYRINGE SQ SCH (09:00)
[2020-10-25] MEDS: OXYBUTYNIN CHLORIDE 5 MG TABLET PO SCH ×2 (09:00→20:46)
[2020-10-25] MEDS: METOPROLOL SUCCINATE 50 MG TAB.SR.24H PO SCH ×2 (09:00→16:40)
[2020-10-25] MEDS: GABAPENTIN 100 MG CAPSULE PO SCH ×2 (09:00→20:46)
[2020-10-25] MEDS: Vitamin B Complex/Vit C/Folic Acid PO SCH (09:00)
[2020-10-25] MEDS: FAMOTIDINE 20MG VIAL IV SCH ×2 (09:02→20:46)
[2020-10-25] MEDS: CEFTRIAXONE 1G VIAL IVP SCH (09:19)
[2020-10-25] MEDS ORDERED: MAGNESIUM 2GM PREMIX 50ML 50 ML IV SCH (11:00)
[2020-10-25] MEDS: MORPHINE 2 MG SYG IVP PRN ×2 (11:27→16:41)
[2020-10-25] MEDS: ONDANSETRON 4MG INJ IV PRN (11:34)
[2020-10-25] MEDS: 0.9%NACL 1000ML 1,000 ML IV SCH ×2 (11:35→17:45)
[2020-10-25] MEDS ORDERED: HYDRALAZINE 20MG/ML VIAL IM PRN (17:00)
[2020-10-25] MEDS ORDERED: AMLODIPINE 5 MG TAB PO ONE (17:00)
[2020-10-25] MEDS: HYDRALAZINE 20MG/ML VIAL IV PRN (18:48)
[2020-10-25] MEDS ORDERED: FUROSEMIDE 40MG VIAL ONE (19:07)
[2020-10-25] MEDS ORDERED: FUROSEMIDE 40MG VIAL IV ONE (19:30)
[2020-10-25 20:45] LABS: APPEARANCE,URINE Cloudy (CLEAR); BILIRUBIN,URINE Small (NEGATIVE); COLOR,URINE Dark Yellow (YELLOW); GLUCOSE, URINE (UA) Negative (NEGATIVE); KETONES,URINE 15 mg/dL (NEGATIVE); LEUKOCYTE ESTERASE ,URINE Trace (NEGATIVE); NITRATE,URINE Negative (NEGATIVE); OCCULT BLOOD,URINE Small (NEGATIVE); PROTEIN,URINE POS 2+ mg/dL (NEGATIVE)
[2020-10-25] MEDS: SIMVASTATIN 10 MG TABLET PO SCH (20:46)
[2020-10-25 21:11] LABS: BACTERIA,URINE Few /HPF (None Seen); SQUAMOUS EPITHELIAL CELL,UR Few /HPF (0-2)
[2020-10-25 21:12] LABS: COARSE GRANULAR CASTS,URINE 0-2 /LPF (None Seen)
[2020-10-26] VITALS (27 sets, daily range): BP systolic 116–199; BP diastolic 51–98
[2020-10-26 05:23] LABS: HEMATOCRIT 36.5 % (36-48); MEAN CORPUSCULAR HEMOGLOBIN 29.3 pg (27.0-33.0); MEAN CORPUSCULAR HGB CONC 33.2 g/dL (32.0-36.0); MEAN CORPUSCULAR VOLUME 88.4 fL (79-99); RED BLOOD CELL COUNT(AUTO) 4.13 MIL/uL (4.00-5.50); RED CELL DISTRIBUTION WIDTH 13.7 % (11.0-15.5); WHITE BLOOD COUNT (AUTO) 22.5 K/uL (4.8-10.8)
[2020-10-26] MEDS: INSULIN HUMULIN R 100 UNIT/ML 3ML SQ SCH ×5 (05:42→22:36)
[2020-10-26 05:51] LABS: ALBUMIN 2.4 g/dL (3.5-5.0); CREATININE 1.8 mg/dL (0.5-1.5); PHOSPHORUS 2.6 mg/dL (2.5-4.9); TOTAL PROTEIN, SERUM 6.1 g/dL (6.0-8.3)
[2020-10-26] MEDS: METRONIDAZOLE 500MG/100ML BAG 100 ML IVPB SCH ×3 (05:51→22:33)
[2020-10-26] MEDS ORDERED: FUROSEMIDE 40MG VIAL IV ONE (06:00)
[2020-10-26] MEDS ORDERED: AMLODIPINE 5 MG TAB ONE (07:06)
[2020-10-26] MEDS: AMLODIPINE 5 MG TAB PO SCH ×2 (07:53→20:32)
[2020-10-26] MEDS: CEFTRIAXONE 1G VIAL IVP SCH (09:00)
[2020-10-26] MEDS: CHOLECALCIFEROL PO SCH (09:00)
[2020-10-26] MEDS ORDERED: AMLODIPINE 5 MG TAB PO SCH (09:00)
[2020-10-26] MEDS: METOPROLOL SUCCINATE 50 MG TAB.SR.24H PO SCH ×2 (09:00→14:54)
[2020-10-26] MEDS: Vitamin B Complex/Vit C/Folic Acid PO SCH (09:00)
[2020-10-26] MEDS: OXYBUTYNIN CHLORIDE 5 MG TABLET PO SCH ×2 (09:00→20:32)
[2020-10-26] MEDS: FAMOTIDINE 20MG VIAL IV SCH ×2 (09:00→20:32)
[2020-10-26] MEDS: GABAPENTIN 100 MG CAPSULE PO SCH ×2 (09:00→20:32)
[2020-10-26] MEDS: ENOXAPARIN SODIUM 40 MG/0.4 ML SYRINGE SQ SCH (09:00)
[2020-10-26] MEDS ORDERED: MIDAZOLAM HCL 1 MG/ML 2ML VIAL ONE (09:27)
[2020-10-26] MEDS ORDERED: SUCCINYLCHOLINE CHLORIDE 20 MG/ML 10 ML VIAL ONE (09:27)
[2020-10-26] MEDS ORDERED: ROCURONIUM 10MG/1ML SYR 10 MG/ML ML ONE (09:27)
[2020-10-26] MEDS ORDERED: LIDOCAINE HCL-MPF 1% 5ML AMP IJ ONE (09:27)
[2020-10-26] MEDS ORDERED: PROPOFOL 10 MG/ML 20ML VIAL IV ONE (09:27)
[2020-10-26] MEDS ORDERED: FENTANYL CITRATE PF 50 MCG/1 ML 2ML VIAL ONE (09:28)
[2020-10-26] MEDS ORDERED: BUPIVACAINE/PF 0.5% 30ML VIAL ONE (09:59)
[2020-10-26] MEDS ORDERED: NEOSTIGMINE 5MG/5ML SYR IV ONE (10:19)
[2020-10-26] MEDS ORDERED: GLYCOPYRROLATE 1 MG/5 ML SYRINGE ONE (10:19)
[2020-10-26] MEDS: 0.9%NACL 1000ML 1,000 ML IV SCH (10:35)
[2020-10-26] MEDS: HYDRALAZINE 20MG/ML VIAL IV PRN (14:48)
[2020-10-26] MEDS: MORPHINE 2 MG SYG IVP PRN (14:50)
[2020-10-26] MEDS: SIMVASTATIN 10 MG TABLET PO SCH (20:32)
[2020-10-27] MEDS: ONDANSETRON 4MG INJ IV PRN (00:08)
[2020-10-27 03:22] VITALS: BP 130/61
[2020-10-27 05:04] LABS: HEMATOCRIT 35.3 % (36-48); MEAN CORPUSCULAR HEMOGLOBIN 28.8 pg (27.0-33.0); MEAN CORPUSCULAR HGB CONC 32.6 g/dL (32.0-36.0); MEAN CORPUSCULAR VOLUME 88.5 fL (79-99); RED BLOOD CELL COUNT(AUTO) 3.99 MIL/uL (4.00-5.50); RED CELL DISTRIBUTION WIDTH 13.8 % (11.0-15.5); WHITE BLOOD COUNT (AUTO) 19.8 K/uL (4.8-10.8)
[2020-10-27 05:30] LABS: ALANINE AMINOTRANSFERASE 44 U/L (12-78); ALBUMIN 2.3 g/dL (3.5-5.0); ASPARTATE AMINOTRANSFERASE 25 U/L (10-37); BILIRUBIN,TOTAL 0.9 mg/dL (0.2-1.0); CARBON DIOXIDE 22 mmol/L (21-32); CHLORIDE 106 mmol/L (101-111); CREATININE 1.6 mg/dL (0.5-1.5); GLOMERULAR FILTR. RATE CALC 33 mL/min (>60); GLUCOSE,RANDOM 176 mg/dL (70-105); POTASSIUM 3.4 mmol/L (3.5-5.1); SODIUM SERUM 142 mmol/L (136-145); TOTAL PROTEIN, SERUM 5.7 g/dL (6.0-8.3); UREA NITROGEN, BLOOD 44 mg/dL (7-18)
[2020-10-27 05:37] LABS: LIPASE < 50 U/L (114-286)
[2020-10-27] MEDS: METRONIDAZOLE 500MG/100ML BAG 100 ML IVPB SCH ×3 (06:11→21:04)
[2020-10-27] MEDS: INSULIN HUMULIN R 100 UNIT/ML 3ML SQ SCH ×4 (06:12→23:44)
[2020-10-27 07:50] VITALS: BP 167/61
[2020-10-27] MEDS: CHOLECALCIFEROL PO SCH (09:00)
[2020-10-27] MEDS: FAMOTIDINE 20MG VIAL IV SCH ×2 (11:01→21:05)
[2020-10-27] MEDS: CEFTRIAXONE 1G VIAL IVP SCH (11:01)
[2020-10-27] MEDS: Vitamin B Complex/Vit C/Folic Acid PO SCH (11:01)
[2020-10-27] MEDS: GABAPENTIN 100 MG CAPSULE PO SCH ×2 (11:01→21:05)
[2020-10-27] MEDS: AMLODIPINE 5 MG TAB PO SCH ×2 (11:01→21:05)
[2020-10-27] MEDS: METOPROLOL SUCCINATE 50 MG TAB.SR.24H PO SCH (11:02)
[2020-10-27] MEDS: OXYBUTYNIN CHLORIDE 5 MG TABLET PO SCH ×2 (11:02→21:05)
[2020-10-27] MEDS: ENOXAPARIN SODIUM 40 MG/0.4 ML SYRINGE SQ SCH (11:02)
[2020-10-27 11:57] VITALS: BP 161/66
[2020-10-27] MEDS: MORPHINE 2 MG SYG IVP PRN ×2 (14:30→19:00)
[2020-10-27 16:00] VITALS: BP 144/48
[2020-10-27 20:15] VITALS: BP 152/64
[2020-10-27] MEDS: SIMVASTATIN 10 MG TABLET PO SCH (21:05)
[2020-10-27] MEDS: HYDRALAZINE 25MG TABLET PO SCH (21:06)
[2020-10-27 23:30] VITALS: BP 160/63
[2020-10-28 03:56] VITALS: BP 164/65
[2020-10-28] MEDS: METRONIDAZOLE 500MG/100ML BAG 100 ML IVPB SCH (04:19)
[2020-10-28] MEDS: INSULIN HUMULIN R 100 UNIT/ML 3ML SQ SCH ×2 (05:40→11:39)
[2020-10-28 06:48] LABS: BASOPHILS % (AUTO) 0.9 % (0.0-5.0); EOSINOPHILS % (AUTO) 0.7 % (0.0-8.0); HEMATOCRIT 37.5 % (36-48); LYMPHOCYTES % (AUTO) 16.7 % (21.0-51.0); MEAN CORPUSCULAR HEMOGLOBIN 28.7 pg (27.0-33.0); MEAN CORPUSCULAR HGB CONC 32.8 g/dL (32.0-36.0); MEAN CORPUSCULAR VOLUME 87.6 fL (79-99); MONOCYTES % (AUTO) 11.7 % (3.0-13.0); NEUTROPHILS % (AUTO) 63.8 % (40.0-77.0); PLATELET COUNT (AUTO) 188 K/uL (130-400); RED BLOOD CELL COUNT(AUTO) 4.28 MIL/uL (4.00-5.50); RED CELL DISTRIBUTION WIDTH 13.6 % (11.0-15.5); WHITE BLOOD COUNT (AUTO) 14.9 K/uL (4.8-10.8)
[2020-10-28 07:10] LABS: ALANINE AMINOTRANSFERASE 36 U/L (12-78); ALBUMIN 2.4 g/dL (3.5-5.0); ASPARTATE AMINOTRANSFERASE 27 U/L (10-37); BILIRUBIN,TOTAL 0.8 mg/dL (0.2-1.0); CARBON DIOXIDE 23 mmol/L (21-32); CHLORIDE 106 mmol/L (101-111); CREATININE 1.4 mg/dL (0.5-1.5); GLOMERULAR FILTR. RATE CALC 39 mL/min (>60); GLUCOSE,RANDOM 187 mg/dL (70-105); POTASSIUM 3.5 mmol/L (3.5-5.1); SODIUM SERUM 141 mmol/L (136-145); TOTAL PROTEIN, SERUM 5.7 g/dL (6.0-8.3); UREA NITROGEN, BLOOD 44 mg/dL (7-18)
[2020-10-28 07:13] LABS: LIPASE < 50 U/L (114-286)
[2020-10-28 08:13] VITALS: BP 186/83
[2020-10-28] MEDS: CHOLECALCIFEROL PO SCH (09:00)
[2020-10-28] MEDS: GABAPENTIN 100 MG CAPSULE PO SCH (10:29)
[2020-10-28] MEDS: FAMOTIDINE 20MG VIAL IV SCH (10:29)
[2020-10-28] MEDS: CEFTRIAXONE 1G VIAL IVP SCH (10:29)
[2020-10-28] MEDS: OXYBUTYNIN CHLORIDE 5 MG TABLET PO SCH (10:29)
[2020-10-28] MEDS: HYDRALAZINE 25MG TABLET PO SCH (10:29)
[2020-10-28] MEDS: AMLODIPINE 5 MG TAB PO SCH (10:29)
[2020-10-28] MEDS: Vitamin B Complex/Vit C/Folic Acid PO SCH (10:29)
[2020-10-28] MEDS: ENOXAPARIN SODIUM 40 MG/0.4 ML SYRINGE SQ SCH (10:30)
[2020-10-28] MEDS: METOPROLOL SUCCINATE 50 MG TAB.SR.24H PO SCH (10:30)
[2020-10-28 11:52] VITALS: BP 164/69
[2020-10-28] MEDS ORDERED: HYDR-4153 PO (13:35)
[2020-10-28] MEDS ORDERED: BENA10TA77 PO (13:35)
[2020-10-28] MEDS ORDERED: METR500T PO (14:34)
[2020-10-28] MEDS ORDERED: CEFU250T87 PO (14:34)
[2020-10-28 16:36] VITALS: BP 169/65
[2020-10-31] MEDS ORDERED: CARI350T PO ×2 (15:20→15:28)
[2020-11-02] MEDS ORDERED: BENA40TA9 PO (10:42)
[2020-11-02] MEDS ORDERED: CARI350T26 PO (10:44)
== END 2020-10-28 17:10 | disposition home or self-care (01) | DRG 417 ==
LOC: EDH 03:35 → EDHIP 05:42 → 4BH 10-24 15:05 → 4CH 10-28 05:20
PROVIDERS: ADMIT Internal Medicine; ATTEND Internal Medicine
PROC: 0FT44ZZ Resection of Gallbladder, Percutaneous Endoscopic Approach (ICD-10-PCS; principal; 2020-10-26 09:00)
DX: K81.0 Acute cholecystitis (principal); K85.10 Biliary acute pancreatitis without necrosis or infection; I50.33 Acute on chronic diastolic (congestive) heart failure; I13.0 Hypertensive heart and chronic kidney disease with heart failure and stage 1 through stage 4 chronic kidney disease, or unspecified chronic kidney disease; K82.1 Hydrops of gallbladder; N13.30 Unspecified hydronephrosis; N17.9 Acute kidney failure, unspecified; R18.8 Other ascites; Z68.41 Body mass index [BMI] 40.0-44.9, adult; E11.22 Type 2 diabetes mellitus with diabetic chronic kidney disease; N18.32 Chronic kidney disease, stage 3b; E66.01 Morbid (severe) obesity due to excess calories; E83.42 Hypomagnesemia; R79.89 Other specified abnormal findings of blood chemistry; D64.9 Anemia, unspecified; E78.00 Pure hypercholesterolemia, unspecified; E78.5 Hyperlipidemia, unspecified; E86.0 Dehydration; H40.9 Unspecified glaucoma; I16.0 Hypertensive urgency; I25.10 Atherosclerotic heart disease of native coronary artery without angina pectoris; I35.0 Nonrheumatic aortic (valve) stenosis; K21.9 Gastro-esophageal reflux disease without esophagitis; Z20.822 Contact with and (suspected) exposure to COVID-19; Z96.653 Presence of artificial knee joint, bilateral; Z88.5 Allergy status to narcotic agent; Z88.8 Allergy status to other drugs, medicaments and biological substances; Z79.84 Long term (current) use of oral hypoglycemic drugs; Z79.899 Other long term (current) drug therapy; Z90.710 Acquired absence of both cervix and uterus; Z83.3 Family history of diabetes mellitus; Z82.5 Family history of asthma and other chronic lower respiratory diseases; Z82.3 Family history of stroke; Z82.0 Family history of epilepsy and other diseases of the nervous system; Z82.49 Family history of ischemic heart disease and other diseases of the circulatory system
CPT/HCPCS: 36415; 71045; 74176; 74181; 76705; 80048; 80053; 80061; 80076; 81001; 82150; 82570; 82948; 83036; 83690; 83735; 84100; 84145; 84156; 85025; 85027; 87635; 93005; 94660; 97039; G0378; J0330; J0360; J0696; J0780; J1650; J1815; J1885; J1940; J2250; J2405; J2704; J2710; J3010; J3475; J3490; J7030

== ENCOUNTER 2020-10-31 13:13 | Emergency (ER) | payer MEDICARE ==
[~2020-10-31] VITALS: Ht 152.4 cm; Wt 100.7 kg
[~2020-10-31 13:13] MED LIST changes: +AMLO-257 PO; -ASPI-556 PO; +BENA10TA77 PO; -BENA40TA9 PO; +CEFU250T87 PO; -CINN500C PO; -CLIN300C10 PO; +COFF1CAP3 PO; -FLUT9.9S NS; +HYDR-4153 PO; +METO-391 PO; +METR500T PO; -OMEP20CA12 PO; +OMEP40CA21 PO; -OXYB5POW MC; +OXYB5TAB15 PO; -TURM500C9 PO
[2020-10-31 13:26] VITALS: BP 165/77
[2020-10-31] MEDS ORDERED: MORPHINE 4 MG SYG IM STA (13:26)
[2020-10-31] MEDS ORDERED: KETOROLAC 30MG VIAL (30MG/ML) IM STA (13:26)
[2020-10-31] MEDS ORDERED: ONDANSETRON ODT 4MG TAB SL STA (13:26)
[2020-10-31 14:56] LABS: APPEARANCE,URINE Clear (CLEAR); BILIRUBIN,URINE Negative (NEGATIVE); COLOR,URINE Yellow (YELLOW); GLUCOSE, URINE (UA) Negative (NEGATIVE); KETONES,URINE Negative (NEGATIVE); LEUKOCYTE ESTERASE ,URINE Negative (NEGATIVE); NITRATE,URINE Negative (NEGATIVE); OCCULT BLOOD,URINE Negative (NEGATIVE); PROTEIN,URINE POS 2+ mg/dL (NEGATIVE); UROBILINOGEN,URINE 0.2 mg/dL (0.2-1.0)
[2020-10-31 15:19] LABS: BACTERIA,URINE Rare /HPF (None Seen); MUCUS,URINE Few LPF (None Seen); SQUAMOUS EPITHELIAL CELL,UR Few /HPF (0-2); WBC,URINE 0-1 /HPF (0-1)
[2020-10-31] MEDS ORDERED: CARI350T PO ×3 (15:20→15:28)
[2020-10-31 15:38] VITALS: BP 156/74
== END 2020-10-31 15:47 | disposition home or self-care (01) ==
LOC: EDH 13:13
DX: M48.061 Spinal stenosis, lumbar region without neurogenic claudication (principal); E11.9 Type 2 diabetes mellitus without complications; E78.00 Pure hypercholesterolemia, unspecified; I10 Essential (primary) hypertension; Z79.1 Long term (current) use of non-steroidal anti-inflammatories (NSAID); Z79.899 Other long term (current) drug therapy; Z88.0 Allergy status to penicillin; Z88.1 Allergy status to other antibiotic agents; Z88.5 Allergy status to narcotic agent; Z98.890 Other specified postprocedural states
CPT/HCPCS: 81001; 96372 ×2; 99284; J1885; J2270

== ENCOUNTER 2020-11-01 18:49 | Inpatient (IN) | payer MEDICARE ==
[~2020-11-01] VITALS: Ht 152.4 cm; Wt 103.4 kg
[~2020-11-01 18:49] MED LIST changes: +CARI350T PO
[2020-11-01 20:12] VITALS: BP 150/82
[2020-11-01] MEDS ORDERED: FENTANYL CITRATE PF 50 MCG/1 ML 2ML VIAL IVP ONE (20:30)
[2020-11-01 20:33] LABS: APPEARANCE,URINE Clear (CLEAR); BILIRUBIN,URINE Negative (NEGATIVE); COLOR,URINE Dark Yellow (YELLOW); GLUCOSE, URINE (UA) TRACE mg/dL (NEGATIVE); KETONES,URINE Trace mg/dL (NEGATIVE); LEUKOCYTE ESTERASE ,URINE Trace (NEGATIVE); NITRATE,URINE Negative (NEGATIVE); OCCULT BLOOD,URINE Negative (NEGATIVE); PROTEIN,URINE POS 2+ mg/dL (NEGATIVE)
[2020-11-01 20:37] LABS: BASOPHILS % (AUTO) 0.6 % (0.0-5.0); EOSINOPHILS % (AUTO) 1.3 % (0.0-8.0); HEMATOCRIT 34.9 % (36-48); LYMPHOCYTES % (AUTO) 14.7 % (21.0-51.0); MEAN CORPUSCULAR HEMOGLOBIN 29.4 pg (27.0-33.0); MEAN CORPUSCULAR VOLUME 89.3 fL (79-99); MONOCYTES % (AUTO) 7.1 % (3.0-13.0); NEUTROPHILS % (AUTO) 71.4 % (40.0-77.0); PLATELET COUNT (AUTO) 305 K/uL (130-400); RED BLOOD CELL COUNT(AUTO) 3.91 MIL/uL (4.00-5.50); RED CELL DISTRIBUTION WIDTH 14.4 % (11.0-15.5); WHITE BLOOD COUNT (AUTO) 15.4 K/uL (4.8-10.8)
[2020-11-01 20:47] LABS: CREATININE 1.6 mg/dL (0.5-1.5); POTASSIUM 3.4 mmol/L (3.5-5.1)
[2020-11-01 20:48] LABS: INR 1.05 (0.85-1.15); PROTHROMBIN TIME 11.4 SEC (9.6-11.6)
[2020-11-01 20:50] LABS: PARTIAL THROMBOPLASTIN TIME 24.7 SEC (26.3-35.5)
[2020-11-01 20:52] LABS: ALBUMIN 2.5 g/dL (3.5-5.0); BILIRUBIN,TOTAL 0.5 mg/dL (0.2-1.0)
[2020-11-01] MEDS ORDERED: FENTANYL CITRATE PF 50 MCG/1 ML 2ML VIAL ONE (20:55)
[2020-11-01 21:12] LABS: BACTERIA,URINE Few /HPF (None Seen); MUCUS,URINE Few LPF (None Seen); RBC,URINE 0-1 /HPF (0-1); SQUAMOUS EPITHELIAL CELL,UR Few /HPF (0-2)
[2020-11-01 21:20] VITALS: BP 154/62
[2020-11-01 21:42] LABS: ERYTHROCYTE SEDIMENTATION RATE 65 MM/HR (0-30)
[2020-11-01 22:22] VITALS: BP 168/78
[2020-11-01] MEDS ORDERED: MORPHINE 4 MG SYG ONE (22:51)
[2020-11-01] MEDS ORDERED: MORPHINE 4 MG SYG IV ONE (23:00)
[2020-11-02] VITALS (9 sets, daily range): BP systolic 160–183; BP diastolic 46–95
[2020-11-02] MEDS ORDERED: IPRATROPIUM/ALBUTEROL SULFATE 3 ML SOLUTION IH PRN (00:30)
[2020-11-02] MEDS ORDERED: ONDANSETRON 4MG INJ IV PRN (00:30)
[2020-11-02] MEDS ORDERED: NITROGLYCERIN 0.4 MG SL TAB SL PRN (00:30)
[2020-11-02] MEDS ORDERED: ACETAMINOPHEN 325 MG TAB PO PRN (00:30)
[2020-11-02] MEDS ORDERED: 0.9% NACL 250ML IVPB SCH (00:30)
[2020-11-02] MEDS ORDERED: AZITHROMYCIN 500MG VIAL IVPB SCH (00:30)
[2020-11-02] MEDS ORDERED: POTASSIUM CHLORIDE 10MEQ SR TAB PO SCH (01:00)
[2020-11-02 01:26] LABS: CRP QUANTITATIVE 154.8 mg/L (0.00-9.0); MAGNESIUM 2.4 mg/dL (1.80-2.40)
[2020-11-02] MEDS: AZTREONAM 1 GM VIAL IVP SCH ×4 (01:30→17:37)
[2020-11-02] MEDS ORDERED: VANCOMYCIN PROTOCOL PER PHARMACY IV SCH (01:30)
[2020-11-02] MEDS ORDERED: KCL 20 MEQ ERTAB PO ONE (01:35)
[2020-11-02] MEDS: AZITHROMYCIN 500MG+NS 250ML 250 ML IV SCH (01:45)
[2020-11-02] MEDS: 0.9%NACL 1000ML 1,000 ML IV SCH ×3 (01:45→22:01)
[2020-11-02] MEDS ORDERED: VANCOMYCIN 1G/250ML KIT 250 ML IV ONE (02:00)
[2020-11-02] MEDS ORDERED: DEXTROSE 50%-WATER 50 ML DISP.SYRIN IV PRN (02:00)
[2020-11-02] MEDS ORDERED: GLUCAGON 1MG KIT 1 MG ML IM PRN (02:00)
[2020-11-02] MEDS: ACETAMINOPHEN 325 MG TAB PO PRN ×2 (03:48→17:38)
[2020-11-02 04:37] LABS: BASOPHILS % (AUTO) 0.6 % (0.0-5.0); EOSINOPHILS % (AUTO) 0.9 % (0.0-8.0); HEMATOCRIT 32.5 % (36-48); LYMPHOCYTES % (AUTO) 13.5 % (21.0-51.0); MEAN CORPUSCULAR HGB CONC 32.6 g/dL (32.0-36.0); MONOCYTES % (AUTO) 7.7 % (3.0-13.0); NEUTROPHILS % (AUTO) 72.9 % (40.0-77.0); PLATELET COUNT (AUTO) 283 K/uL (130-400); RED BLOOD CELL COUNT(AUTO) 3.65 MIL/uL (4.00-5.50); RED CELL DISTRIBUTION WIDTH 14.3 % (11.0-15.5); WHITE BLOOD COUNT (AUTO) 13.9 K/uL (4.8-10.8)
[2020-11-02 04:45] LABS: HEMOGLOBIN A1C 8.5 % (4.0-6.0)
[2020-11-02 04:50] LABS: ALBUMIN 2.3 g/dL (3.5-5.0); BILIRUBIN,TOTAL 0.5 mg/dL (0.2-1.0); CREATININE 1.3 mg/dL (0.5-1.5); MAGNESIUM 2.1 mg/dL (1.80-2.40); POTASSIUM 3.5 mmol/L (3.5-5.1); TOTAL PROTEIN, SERUM 5.4 g/dL (6.0-8.3)
[2020-11-02] MEDS: INSULIN HUMULIN R 100 UNIT/ML 3ML SQ SCH ×4 (08:33→22:16)
[2020-11-02] MEDS: HEPARIN 5,000 UNIT VIAL SQ SCH ×3 (09:53→22:01)
[2020-11-02] MEDS: FAMOTIDINE 20MG TAB PO SCH ×2 (09:53→21:58)
[2020-11-02] MEDS ORDERED: BENA40TA9 PO ×2 (10:42)
[2020-11-02] MEDS ORDERED: CARI350T26 PO ×2 (10:44)
[2020-11-02] MEDS ORDERED: VANCOMYCIN 750MG VIAL IVPB SCH (21:00)
[2020-11-02] MEDS ORDERED: INSULIN GLARGINE 100 UNITS/ML 10 ML VIAL SQ SCH (21:00)
[2020-11-02] MEDS ORDERED: 0.9% NACL 250ML 250 ML IV SCH (21:00)
[2020-11-02] MEDS ORDERED: SIMVASTATIN 10 MG TABLET ONE (22:52)
[2020-11-02] MEDS ORDERED: GABAPENTIN 100 MG CAPSULE ONE (22:53)
[2020-11-02] MEDS ORDERED: AMLODIPINE 5 MG TAB ONE (22:53)
[2020-11-02] MEDS ORDERED: OXYBUTYNIN CHLORIDE 5 MG TABLET ONE (22:53)
[2020-11-02] MEDS ORDERED: METOPROLOL SUCCINATE 50 MG TAB.SR.24H PO ONE (22:53)
[2020-11-03 00:40] VITALS: BP 172/73
[2020-11-03] MEDS: AZTREONAM 1 GM VIAL IVP SCH ×3 (01:18→16:42)
[2020-11-03] MEDS: ACETAMINOPHEN 325 MG TAB PO PRN ×2 (01:18→08:58)
[2020-11-03] MEDS: AZITHROMYCIN 500MG+NS 250ML 250 ML IV SCH (01:18)
[2020-11-03 02:37] VITALS: BP 147/67
[2020-11-03 03:02] VITALS: BP 147/67
[2020-11-03] MEDS: INSULIN HUMULIN R 100 UNIT/ML 3ML SQ SCH ×3 (05:44→16:27)
[2020-11-03 08:16] VITALS: BP 172/69
[2020-11-03] MEDS: FAMOTIDINE 20MG TAB PO SCH (08:51)
[2020-11-03] MEDS: HEPARIN 5,000 UNIT VIAL SQ SCH ×2 (08:52→16:27)
[2020-11-03] MEDS ORDERED: METOPROLOL SUCCINATE 50 MG TAB.SR.24H PO SCH (09:00)
[2020-11-03] MEDS ORDERED: AMLODIPINE 5 MG TAB PO SCH (09:00)
[2020-11-03] MEDS ORDERED: GABAPENTIN 100 MG CAPSULE PO SCH (09:00)
[2020-11-03] MEDS ORDERED: OXYBUTYNIN CHLORIDE 5 MG TABLET PO SCH (09:00)
[2020-11-03 11:43] VITALS: BP 143/68
[2020-11-03] MEDS ORDERED: (Benazepril HCl 40 MG) PO SCH (14:00)
[2020-11-03] MEDS ORDERED: HOME MEDICATION 1 EACH PO SCH (14:00)
[2020-11-03 16:31] VITALS: BP 172/66
[2020-11-03] MEDS ORDERED: SIMVASTATIN 10 MG TABLET PO SCH (21:00)
== END 2020-11-03 18:30 | disposition home or self-care (01) | DRG 194 ==
LOC: EDH 18:49 → EDHIP 11-02 00:18 → 3AH 11-03 00:33
PROVIDERS: ADMIT Hospitalist; ATTEND Hospitalist
DX: J18.9 Pneumonia, unspecified organism (principal); Z68.41 Body mass index [BMI] 40.0-44.9, adult; E78.5 Hyperlipidemia, unspecified; N18.30 Chronic kidney disease, stage 3 unspecified; E11.22 Type 2 diabetes mellitus with diabetic chronic kidney disease; E66.01 Morbid (severe) obesity due to excess calories; E87.6 Hypokalemia; I12.9 Hypertensive chronic kidney disease with stage 1 through stage 4 chronic kidney disease, or unspecified chronic kidney disease; E78.00 Pure hypercholesterolemia, unspecified; K76.0 Fatty (change of) liver, not elsewhere classified; Z20.822 Contact with and (suspected) exposure to COVID-19; Z90.710 Acquired absence of both cervix and uterus; Z90.49 Acquired absence of other specified parts of digestive tract; Z88.2 Allergy status to sulfonamides; Z88.8 Allergy status to other drugs, medicaments and biological substances; Z82.0 Family history of epilepsy and other diseases of the nervous system; Z80.9 Family history of malignant neoplasm, unspecified; Z82.5 Family history of asthma and other chronic lower respiratory diseases; Z83.3 Family history of diabetes mellitus; Z82.49 Family history of ischemic heart disease and other diseases of the circulatory system
CPT/HCPCS: 36415; 71045; 74176; 78226; 80053; 81001; 82550; 82948; 83036; 83605; 83690; 83735; 83874; 84145; 84484; 85025; 85610; 85651; 85730; 86140; 87040; 87486; 87581; 87633; 87635; 87798; 93005; 96372; A9537; G0378; J0456; J1644; J1815; J1885; J2270; J3010; J3370; J3490; J7030; J7050

== ENCOUNTER 2020-11-05 04:33 | Emergency (ER) | payer MEDICARE ==
[~2020-11-05] VITALS: Ht 152.4 cm; Wt 109.8 kg
[~2020-11-05 04:33] MED LIST changes: +BENA40TA9 PO; +CARI350T26 PO
[2020-11-05 04:48] VITALS: BP 177/63
[2020-11-05 04:57] VITALS: BP 177/63
[2020-11-05 05:25] LABS: BASOPHILS % (AUTO) 0.5 % (0.0-5.0); HEMATOCRIT 33.7 % (36-48); LYMPHOCYTES % (AUTO) 15.4 % (21.0-51.0); MEAN CORPUSCULAR HEMOGLOBIN 28.8 pg (27.0-33.0); MEAN CORPUSCULAR HGB CONC 32.3 g/dL (32.0-36.0); MEAN CORPUSCULAR VOLUME 89.2 fL (79-99); MONOCYTES % (AUTO) 9.4 % (3.0-13.0); NEUTROPHILS % (AUTO) 71.2 % (40.0-77.0); PLATELET COUNT (AUTO) 422 K/uL (130-400); RED BLOOD CELL COUNT(AUTO) 3.78 MIL/uL (4.00-5.50); RED CELL DISTRIBUTION WIDTH 14.4 % (11.0-15.5); WHITE BLOOD COUNT (AUTO) 10.4 K/uL (4.8-10.8)
[2020-11-05 05:42] LABS: APPEARANCE,URINE Clear (CLEAR); BILIRUBIN,URINE Negative (NEGATIVE); COLOR,URINE Yellow (YELLOW); GLUCOSE, URINE (UA) TRACE mg/dL (NEGATIVE); KETONES,URINE Negative (NEGATIVE); LEUKOCYTE ESTERASE ,URINE Negative (NEGATIVE); NITRATE,URINE Negative (NEGATIVE); OCCULT BLOOD,URINE Moderate (NEGATIVE); PROTEIN,URINE POS 2+ mg/dL (NEGATIVE); UROBILINOGEN,URINE 0.2 mg/dL (0.2-1.0)
[2020-11-05 05:43] LABS: ALBUMIN 2.4 g/dL (3.5-5.0); BILIRUBIN,TOTAL 0.5 mg/dL (0.2-1.0); CREATININE 1.2 mg/dL (0.5-1.5); POTASSIUM 4.2 mmol/L (3.5-5.1); TOTAL PROTEIN, SERUM 5.9 g/dL (6.0-8.3)
[2020-11-05 06:12] LABS: BACTERIA,URINE Few /HPF (None Seen); SQUAMOUS EPITHELIAL CELL,UR 0-2 /HPF (0-2)
[2020-11-05] MEDS ORDERED: ORPHENADRINE CITRATE 30 MG/ML ML ONE (06:37)
[2020-11-05] MEDS ORDERED: LIDOCAINE 5% TOPICAL PATCH TP ONE (06:38)
[2020-11-05] MEDS ORDERED: TRAMADOL HCL 50 MG TABLET ONE (06:38)
[2020-11-05] MEDS ORDERED: LIDOCAINE 5% TOPICAL PATCH TP SCH (06:49)
[2020-11-05] MEDS ORDERED: TRAMADOL HCL 50 MG TABLET PO SCH (06:49)
[2020-11-05] MEDS ORDERED: ORPHENADRINE CITRATE 30 MG/ML ML IM SCH (06:50)
[2020-11-05 07:42] VITALS: BP 179/39
[2020-11-05] MEDS ORDERED: KETOROLAC 30MG VIAL (30MG/ML) ONE (08:21)
[2020-11-05] MEDS ORDERED: HYDROCODONE/ACETAMINOPHEN 10/325 MG TAB ONE (08:21)
[2020-11-05] MEDS ORDERED: HYDROCODONE/ACETAMINOPHEN 10/325 MG TAB PO SCH (08:30)
[2020-11-05] MEDS ORDERED: KETOROLAC 30MG VIAL (30MG/ML) IM SCH (08:30)
[2020-11-05] MEDS ORDERED: HYDR-4068 PO ×2 (08:47→13:35)
== END 2020-11-05 09:26 | disposition home or self-care (01) ==
LOC: EDH 04:33
DX: M48.54XA Collapsed vertebra, not elsewhere classified, thoracic region, initial encounter for fracture (principal); G89.29 Other chronic pain; M54.5 Low back pain; R32 Unspecified urinary incontinence; E11.9 Type 2 diabetes mellitus without complications; I10 Essential (primary) hypertension; Z79.1 Long term (current) use of non-steroidal anti-inflammatories (NSAID); Z79.899 Other long term (current) drug therapy; Z88.0 Allergy status to penicillin; Z88.1 Allergy status to other antibiotic agents; Z88.5 Allergy status to narcotic agent; Z90.710 Acquired absence of both cervix and uterus
CPT/HCPCS: 36415; 72131; 80053; 81001; 82150; 82550; 83690; 84484; 85025; 96372 ×2; 99284; J1885; J2360

== ENCOUNTER 2020-11-15 13:13 | Inpatient (IN) | payer MEDICARE ==
[~2020-11-15] VITALS: Ht 149.9 cm; Wt 100.7 kg
[~2020-11-15 13:13] MED LIST changes: +HYDR-4068 PO
[2020-11-15 14:04] LABS: BASOPHILS % (AUTO) 0.8 % (0.0-5.0); EOSINOPHILS % (AUTO) 3.4 % (0.0-8.0); LYMPHOCYTES % (AUTO) 23.2 % (21.0-51.0); MEAN CORPUSCULAR HEMOGLOBIN 28.9 pg (27.0-33.0); MEAN CORPUSCULAR HGB CONC 32.6 g/dL (32.0-36.0); MEAN CORPUSCULAR VOLUME 88.8 fL (79-99); MONOCYTES % (AUTO) 7.9 % (3.0-13.0); NEUTROPHILS % (AUTO) 64.2 % (40.0-77.0); PLATELET COUNT (AUTO) 249 K/uL (130-400); RED BLOOD CELL COUNT(AUTO) 3.49 MIL/uL (4.00-5.50); RED CELL DISTRIBUTION WIDTH 14.1 % (11.0-15.5)
[2020-11-15 14:14] LABS: CREATININE 1.2 mg/dL (0.5-1.5); POTASSIUM 3.7 mmol/L (3.5-5.1)
[2020-11-15 14:19] LABS: ALBUMIN 2.8 g/dL (3.5-5.0); BILIRUBIN,TOTAL 0.5 mg/dL (0.2-1.0); TOTAL PROTEIN, SERUM 6.1 g/dL (6.0-8.3)
[2020-11-15] MEDS ORDERED: MORPHINE 4 MG SYG IV ONE (14:30)
[2020-11-15] MEDS ORDERED: ONDANSETRON 4MG INJ IVP ONE (14:30)
[2020-11-15] MEDS ORDERED: 0.9% NACL 500ML IV.SOLN 500 ML IV SCH (14:30)
[2020-11-15] MEDS ORDERED: ACETAMINOPHEN 500 MG TABLET PO ONE (14:30)
[2020-11-15] MEDS ORDERED: BACITRACIN 28.4 GM OINT TP SCH (15:00)
[2020-11-15] MEDS ORDERED: DIATR MEGLU/DIATRIZOATE SODIUM 30 ML BOTTLE ONE (15:17)
[2020-11-15 15:30] VITALS: BP 212/67
[2020-11-15] MEDS ORDERED: ONDANSETRON 4MG INJ ONE (16:13)
[2020-11-15] MEDS ORDERED: ACETAMINOPHEN 500 MG TABLET ONE (16:14)
[2020-11-15] MEDS ORDERED: MORPHINE 4 MG SYG ONE (16:14)
[2020-11-15] MEDS ORDERED: IOHEXOL 350 MG/ML 100ML INFUS..BTL IV ONE (16:42)
[2020-11-15 18:15] VITALS: BP 168/63
[2020-11-15 19:15] VITALS: BP 179/67
[2020-11-15] MEDS ORDERED: MAG/ALUM/SIMETH 30 ML UDCUP PO PRN (19:30)
[2020-11-15] MEDS ORDERED: ONDANSETRON 4MG INJ IV PRN (19:30)
[2020-11-15] MEDS ORDERED: NITROGLYCERIN 0.4 MG SL TAB SL PRN (19:30)
[2020-11-15] MEDS ORDERED: ZOLPIDEM TARTRATE 5 MG TAB PO PRN (19:30)
[2020-11-15] MEDS ORDERED: LACTULOSE 20 GM/30 ML UDCUP PO PRN (19:30)
[2020-11-15] MEDS ORDERED: ACETAMINOPHEN 325 MG TAB PO PRN ×2 (19:30)
[2020-11-15] MEDS ORDERED: MEPERIDINE-PF 50 MG/ML SYG IM PRN (20:00)
[2020-11-15 20:15] VITALS: BP 117/61
[2020-11-15] MEDS: LACTATED RINGERS 1000ML 1,000 ML IV SCH (20:28)
[2020-11-15] MEDS: METRONIDAZOLE 500MG/100ML BAG 100 ML IV SCH (20:28)
[2020-11-15] MEDS: FAMOTIDINE 20MG VIAL IV SCH (21:15)
[2020-11-15 21:30] VITALS: BP 129/82
[2020-11-15 22:19] LABS: APPEARANCE,URINE Clear (CLEAR); BILIRUBIN,URINE Negative (NEGATIVE); COLOR,URINE Yellow (YELLOW); GLUCOSE, URINE (UA) Negative (NEGATIVE); KETONES,URINE Negative (NEGATIVE); LEUKOCYTE ESTERASE ,URINE Negative (NEGATIVE); NITRATE,URINE Negative (NEGATIVE); OCCULT BLOOD,URINE Negative (NEGATIVE); PH,URINE 5.5 (5.0-8.0); PROTEIN,URINE POS 2+ mg/dL (NEGATIVE)
[2020-11-15 22:27] LABS: AMPHET/METH SCREEN,URINE NEGATIVE (NEGATIVE); BARBITURATE SCREEN, URINE NEGATIVE (NEGATIVE); BENZODIAZEPINES SCREEN,URINE NEGATIVE (NEGATIVE); CANNABINOID SCREEN,URINE NEGATIVE (NEGATIVE); COCAINE SCREEN,URINE NEGATIVE (NEGATIVE); OPIATE SCREEN,URINE POSITIVE (NEGATIVE); PHENCYCLIDINE SCREEN,URINE NEGATIVE (NEGATIVE)
[2020-11-15 22:48] LABS: BACTERIA,URINE None Seen /HPF (None Seen); SQUAMOUS EPITHELIAL CELL,UR Moderate /HPF (0-2); WBC,URINE 0-1 /HPF (0-1)
[2020-11-15 23:00] VITALS: BP 145/82
[2020-11-16] VITALS (8 sets, daily range): BP systolic 120–181; BP diastolic 58–75
[2020-11-16] MEDS: HYDRALAZINE 20MG/ML VIAL IV PRN (01:34)
[2020-11-16] MEDS: METRONIDAZOLE 500MG/100ML BAG 100 ML IV SCH ×2 (03:07→11:26)
[2020-11-16] MEDS: INSULIN HUMULIN R 100 UNIT/ML 3ML SQ SCH ×3 (06:18→17:17)
[2020-11-16] MEDS: MEROPENEM 1 GM VIAL IVP SCH ×2 (12:11→22:50)
[2020-11-16] MEDS: FAMOTIDINE 20MG VIAL IV SCH (20:29)
[2020-11-16] MEDS: LACTATED RINGERS 1000ML 1,000 ML IV SCH (20:55)
[2020-11-16] MEDS ORDERED: DiphenhydrAMINE HCL 50 MG/ML VIAL ONE (22:44)
[2020-11-16] MEDS ORDERED: KETOROLAC 30MG VIAL (30MG/ML) IV ONE (23:00)
[2020-11-16] MEDS ORDERED: DiphenhydrAMINE HCL 50 MG/ML VIAL IV ONE (23:00)
[2020-11-17] VITALS: BP 158/68
[2020-11-17 04:00] VITALS: BP 140/53
[2020-11-17] MEDS: INSULIN HUMULIN R 100 UNIT/ML 3ML SQ SCH ×3 (07:30→17:00)
[2020-11-17 07:49] VITALS: BP 204/82
[2020-11-17] MEDS: GABAPENTIN 100 MG CAPSULE PO SCH ×2 (09:00→20:00)
[2020-11-17 09:46] LABS: HEMATOCRIT 33.1 % (36-48); MEAN CORPUSCULAR HEMOGLOBIN 28.8 pg (27.0-33.0); MEAN CORPUSCULAR HGB CONC 32.6 g/dL (32.0-36.0); MEAN CORPUSCULAR VOLUME 88.3 fL (79-99); RED BLOOD CELL COUNT(AUTO) 3.75 MIL/uL (4.00-5.50); RED CELL DISTRIBUTION WIDTH 14.5 % (11.0-15.5); WHITE BLOOD COUNT (AUTO) 6.7 K/uL (4.8-10.8)
[2020-11-17 10:05] LABS: BILIRUBIN,TOTAL 0.8 mg/dL (0.2-1.0); CREATININE 1.2 mg/dL (0.5-1.5); POTASSIUM 3.5 mmol/L (3.5-5.1); TOTAL PROTEIN, SERUM 6.4 g/dL (6.0-8.3)
[2020-11-17 12:00] VITALS: BP 180/55
[2020-11-17] MEDS: MEROPENEM 1 GM VIAL IVP SCH ×2 (12:07→21:47)
[2020-11-17] MEDS: BENAZEPRIL HCL 10 MG TABLET PO SCH (12:08)
[2020-11-17 16:00] VITALS: BP 188/59
[2020-11-17] MEDS: HYDRALAZINE 20MG/ML VIAL IV PRN (17:06)
[2020-11-17] MEDS ORDERED: DEXAMETHASONE SOD PHOSPHATE 4 MG/ML 1ML VIAL IVP SCH (18:30)
[2020-11-17] MEDS ORDERED: DiphenhydrAMINE HCL 50 MG/ML VIAL IV ONE (18:30)
[2020-11-17] MEDS ORDERED: SIMVASTATIN 10 MG TABLET ONE (19:27)
[2020-11-17] MEDS ORDERED: HYDRALAZINE 25MG TABLET ONE (19:28)
[2020-11-17] MEDS ORDERED: OXYBUTYNIN CHLORIDE 5 MG TABLET ONE (19:29)
[2020-11-17 20:00] VITALS: BP 165/66
[2020-11-17] MEDS: OXYBUTYNIN CHLORIDE 5 MG TABLET PO SCH (20:00)
[2020-11-17] MEDS: HYDRALAZINE 25MG TABLET PO SCH (20:00)
[2020-11-17] MEDS: FAMOTIDINE 20MG VIAL IV SCH (20:01)
[2020-11-17] MEDS ORDERED: LATANOPROST 2.5 ML DROPS OU SCH (21:00)
[2020-11-17] MEDS ORDERED: SIMVASTATIN 10 MG TABLET PO SCH (21:00)
[2020-11-18] VITALS: BP 148/58
[2020-11-18 05:46] LABS: BASOPHILS % (AUTO) 0.7 % (0.0-5.0); EOSINOPHILS % (AUTO) 1.6 % (0.0-8.0); HEMATOCRIT 31.8 % (36-48); LYMPHOCYTES % (AUTO) 21.3 % (21.0-51.0); MEAN CORPUSCULAR HEMOGLOBIN 28.9 pg (27.0-33.0); MEAN CORPUSCULAR HGB CONC 32.1 g/dL (32.0-36.0); MEAN CORPUSCULAR VOLUME 90.1 fL (79-99); MONOCYTES % (AUTO) 2.5 % (3.0-13.0); PLATELET COUNT (AUTO) 239 K/uL (130-400); RED BLOOD CELL COUNT(AUTO) 3.53 MIL/uL (4.00-5.50); RED CELL DISTRIBUTION WIDTH 14.8 % (11.0-15.5); WHITE BLOOD COUNT (AUTO) 4.4 K/uL (4.8-10.8)
[2020-11-18 06:02] LABS: ALBUMIN 2.5 g/dL (3.5-5.0); BILIRUBIN,TOTAL 0.6 mg/dL (0.2-1.0); CREATININE 1.2 mg/dL (0.5-1.5); POTASSIUM 4.1 mmol/L (3.5-5.1); TOTAL PROTEIN, SERUM 5.5 g/dL (6.0-8.3)
[2020-11-18] MEDS: INSULIN HUMULIN R 100 UNIT/ML 3ML SQ SCH ×2 (06:19→11:24)
[2020-11-18 08:10] VITALS: BP 131/72
[2020-11-18] MEDS: OXYBUTYNIN CHLORIDE 5 MG TABLET PO SCH (08:55)
[2020-11-18] MEDS: HYDRALAZINE 25MG TABLET PO SCH (08:56)
[2020-11-18] MEDS: BENAZEPRIL HCL 10 MG TABLET PO SCH (08:56)
[2020-11-18] MEDS: GABAPENTIN 100 MG CAPSULE PO SCH (08:56)
[2020-11-18] MEDS ORDERED: AMLODIPINE 5 MG TAB PO SCH (09:00)
[2020-11-18] MEDS ORDERED: METOPROLOL SUCCINATE 50 MG TAB.SR.24H PO SCH (09:00)
[2020-11-18] MEDS: MEROPENEM 1 GM VIAL IVP SCH (10:59)
[2020-11-18 11:41] VITALS: BP 140/63
== END 2020-11-18 14:00 | disposition home or self-care (01) | DRG 392 ==
LOC: EDH 13:13 → EDHIP 19:18 → 3DH 11-16 01:07
PROVIDERS: ADMIT Internal Medicine; ATTEND Internal Medicine
DX: R10.9 Unspecified abdominal pain (principal); Z68.41 Body mass index [BMI] 40.0-44.9, adult; E66.01 Morbid (severe) obesity due to excess calories; I10 Essential (primary) hypertension; K20.90 Esophagitis, unspecified without bleeding; D64.9 Anemia, unspecified; Z20.822 Contact with and (suspected) exposure to COVID-19; M19.90 Unspecified osteoarthritis, unspecified site; E11.9 Type 2 diabetes mellitus without complications; E78.00 Pure hypercholesterolemia, unspecified; M10.9 Gout, unspecified; E78.5 Hyperlipidemia, unspecified; Z96.653 Presence of artificial knee joint, bilateral; D72.829 Elevated white blood cell count, unspecified; K57.90 Diverticulosis of intestine, part unspecified, without perforation or abscess without bleeding; Z90.710 Acquired absence of both cervix and uterus; Z90.49 Acquired absence of other specified parts of digestive tract; Z88.5 Allergy status to narcotic agent; Z88.8 Allergy status to other drugs, medicaments and biological substances; Z83.3 Family history of diabetes mellitus; Z82.0 Family history of epilepsy and other diseases of the nervous system; Z80.9 Family history of malignant neoplasm, unspecified; Z82.5 Family history of asthma and other chronic lower respiratory diseases; Z82.3 Family history of stroke; Z82.49 Family history of ischemic heart disease and other diseases of the circulatory system
CPT/HCPCS: 36415; 74177; 78226; 80053; 80305; 81001; 82150; 82550; 82948; 83690; 83874; 84145; 84484; 85025; 85027; 85651; 86140; 87040; 87635; 93005; A9537; G0378; J0360; J1100; J1200; J1815; J1885; J2185; J2270; J2405; J3490; J7040; J7120; Q9963; Q9967

== ENCOUNTER → 2023-04-23 | Outpatient (CLI) | payer MEDICARE, OTHER ==
[~2023-04-23] MED LIST changes: -BENA10TA77 PO; -BENA40TA9 PO; +BENA40TA92 PO; -CARI350T PO; -CARI350T26 PO; -CEFU250T87 PO; -COFF1CAP3 PO; -HYDR-4068 PO; -HYDR-4153 PO; +HYDR25TA67 PO; -METR500T PO; -OXYB5TAB15 PO; +OXYB5TAB20 PO
== END | disposition home or self-care (01) ==
LOC: RAH 12:57
PROVIDERS: ATTEND Internal Medicine
DX: I08.0 Rheumatic disorders of both mitral and aortic valves (principal); I11.9 Hypertensive heart disease without heart failure; R42 Dizziness and giddiness; R04.1 Hemorrhage from throat; E11.9 Type 2 diabetes mellitus without complications
CPT/HCPCS: 93306

== ENCOUNTER 2023-06-14 05:49 | Day surgery (SDC) | payer OTHER ==
[2023-06-10 10:13] LABS: BASOPHILS # (AUTO) 0.06 K/uL (0.00-0.20); BASOPHILS % (AUTO) 0.6 % (0.0-5.0); EOSINOPHILS # (AUTO) 0.17 K/uL (0.00-0.70); EOSINOPHILS % (AUTO) 1.8 % (0.0-8.0); HEMATOCRIT 34.7 % (36-48); IMMATURE GRANULOCYTE ABSOLUTE 0.03 K/uL (0-1); LYMPHOCYTES # (AUTO) 2.7 K/uL (1.0-4.8); LYMPHOCYTES % (AUTO) 28.4 % (21.0-51.0); MEAN CORPUSCULAR HGB CONC 32.9 g/dL (32.0-36.0); MEAN CORPUSCULAR VOLUME 94.3 fL (79-99); MONOCYTES # (AUTO) 0.6 K/uL (0.1-1.0); MONOCYTES % (AUTO) 6.8 % (3.0-13.0); NEUTROPHILS # (AUTO) 5.8 K/uL (1.8-7.7); NEUTROPHILS % (AUTO) 62.1 % (40.0-77.0); PLATELET COUNT (AUTO) 199 K/uL (130-400); RED BLOOD CELL COUNT(AUTO) 3.68 MIL/uL (4.00-5.50); RED CELL DISTRIBUTION WIDTH 12.4 % (11.0-15.5); WHITE BLOOD COUNT (AUTO) 9.3 K/uL (4.8-10.8)
[2023-06-10 10:20] LABS: APPEARANCE,URINE CLEAR (CLEAR); BILIRUBIN,URINE NEGATIVE (NEGATIVE); COLOR,URINE LIGHT-YELLOW (YELLOW); GLUCOSE, URINE (UA) NEGATIVE (NEGATIVE); KETONES,URINE NEGATIVE (NEGATIVE); LEUKOCYTE ESTERASE ,URINE NEGATIVE Leu/uL (NEGATIVE); NITRATE,URINE NEGATIVE (NEGATIVE); OCCULT BLOOD,URINE NEGATIVE (NEGATIVE); PROTEIN,URINE 10 mg/dL (NEGATIVE); UROBILINOGEN,URINE 0.2 mg/dL (0.2-1.0)
[2023-06-10 10:24] LABS: CREATININE 1.4 mg/dL (0.5-1.0); INR <= 0.93 (0.85-1.15); POTASSIUM 4.8 mmol/L (3.5-5.1); PROTHROMBIN TIME 10.5 SEC (9.6-11.6)
[2023-06-10 10:25] LABS: PARTIAL THROMBOPLASTIN TIME 29.2 SEC (26.3-35.5)
[2023-06-10 10:35] VITALS: BP 168/72; PULSE 87; RESP 18
[2023-06-10 10:41] LABS: ADD UA MICROSCOPIC YES
[2023-06-10 11:51] LABS: B-TYPE NATRIURETIC PEPTIDE 157 pg/mL (0-100)
[2023-06-10 12:01] LABS: RBC,URINE 0-1 /HPF (0-1); SQUAMOUS EPITHELIAL CELL,UR RARE /HPF (0-2); WBC,URINE 0-1 /HPF (0-1)
[2023-06-14] VITALS (11 sets, daily range): BP systolic 138–165; BP diastolic 40–67; PULSE 65–79; RESP 14–19
[~2023-06-14] VITALS: Ht 152.4 cm; Wt 99.5 kg
[~2023-06-14 05:49] MED LIST changes: +ACET-2123 PO; +ASCO100031 PO; +ATOR10 PO; -CHOL200074 PO; +CHOL500045 PO; +CINN500C PO; +FISH1CAP63 PO; -HYDR25TA67 PO; -METO-391 PO; +MV-M1TAB57 PO; -OMEP40CA21 PO; -SIMV10TA97 PO; +TURM500C9 PO
[2023-06-14] MEDS: 0.9%NACL 1000ML 1,000 ML IV ONE (07:01)
[2023-06-14] MEDS ORDERED: HEPARIN 10,000 UNIT/10ML (1,000 UNIT/ML) VIAL ONE (07:28)
[2023-06-14] MEDS ORDERED: MIDAZOLAM HCL 1 MG/ML 2ML VIAL ONE ×2 (07:28→07:56)
[2023-06-14] MEDS ORDERED: LIDOCAINE HCL 400MG/20ML VIAL ONE (07:28)
[2023-06-14] MEDS ORDERED: FENTANYL CITRATE PF 50 MCG/1 ML 2ML VIAL ONE (07:28)
[2023-06-14] MEDS ORDERED: IOHEXOL 350 MG/ML 100ML INFUS..BTL IV ONE (07:28)
[2023-06-14] MEDS ORDERED: NITROGLYCERIN 50MG VIAL ONE (07:29)
[2023-06-14] MEDS ORDERED: VERAPAMIL HCL 2.5 MG/ML VIAL ONE (07:29)
[2023-06-14] MEDS ORDERED: DEXTROSE 50%-WATER 50 ML DISP.SYRIN IV PRN (09:00)
[2023-06-14] MEDS ORDERED: GLUCAGON 1MG KIT 1 MG ML IM PRN (09:00)
== END 2023-06-14 11:45 | disposition home or self-care (01) ==
LOC: DAH 05:49
PROVIDERS: ATTEND Student in an Organized Health Care Education/Training Program
DX: I35.0 Nonrheumatic aortic (valve) stenosis (principal); I25.119 Atherosclerotic heart disease of native coronary artery with unspecified angina pectoris; I11.0 Hypertensive heart disease with heart failure; I50.32 Chronic diastolic (congestive) heart failure; E78.5 Hyperlipidemia, unspecified; E11.9 Type 2 diabetes mellitus without complications; K21.9 Gastro-esophageal reflux disease without esophagitis; M81.0 Age-related osteoporosis without current pathological fracture; Z79.84 Long term (current) use of oral hypoglycemic drugs; Z79.899 Other long term (current) drug therapy; Z98.890 Other specified postprocedural states; Z79.01 Long term (current) use of anticoagulants; Z90.710 Acquired absence of both cervix and uterus; Z82.49 Family history of ischemic heart disease and other diseases of the circulatory system; Z83.3 Family history of diabetes mellitus; Z88.8 Allergy status to other drugs, medicaments and biological substances; Z88.6 Allergy status to analgesic agent
CPT/HCPCS: 80048; 83880; 85025; 85610; 85730; 81001; 36415; 71045; 93005; 93460; 82948 ×2; C1894 ×2; C1769; A4649; J3010; J3490 ×3; J7030; J1644 ×2; J2250 ×2; Q9967; A4215; A4222; A4221; A4663; A4216; A4606; Q9965; A4520; A4223 ×3; A4554; A4335 ×2; 99156; 99157

== ENCOUNTER 2023-06-15 10:54 | Inpatient (IN) | payer OTHER ==
[2023-06-15] VITALS (7 sets, daily range): BP systolic 164–194; BP diastolic 72–82; PULSE 74–81; RESP 16–18; O2SAT 96–99
[~2023-06-15] VITALS: Ht 152.4 cm; Wt 99.3 kg
[2023-06-15 12:50] LABS: BASOPHILS # (AUTO) 0.04 K/uL (0.00-0.20); BASOPHILS % (AUTO) 0.6 % (0.0-5.0); EOSINOPHILS # (AUTO) 0.22 K/uL (0.00-0.70); EOSINOPHILS % (AUTO) 3.2 % (0.0-8.0); HEMATOCRIT 29.2 % (36-48); IMMATURE GRANULOCYTE ABSOLUTE 0.02 K/uL (0-1); LYMPHOCYTES # (AUTO) 2.1 K/uL (1.0-4.8); LYMPHOCYTES % (AUTO) 30.2 % (21.0-51.0); MEAN CORPUSCULAR HEMOGLOBIN 30.8 pg (27.0-33.0); MEAN CORPUSCULAR HGB CONC 34.6 g/dL (32.0-36.0); MONOCYTES # (AUTO) 0.6 K/uL (0.1-1.0); MONOCYTES % (AUTO) 8.2 % (3.0-13.0); NEUTROPHILS % (AUTO) 57.5 % (40.0-77.0); PLATELET COUNT (AUTO) 174 K/uL (130-400); RED BLOOD CELL COUNT(AUTO) 3.28 MIL/uL (4.00-5.50); RED CELL DISTRIBUTION WIDTH 12.5 % (11.0-15.5); WHITE BLOOD COUNT (AUTO) 6.9 K/uL (4.8-10.8)
[2023-06-15 13:04] LABS: CREATININE 1.3 mg/dL (0.5-1.0); POTASSIUM 5.2 mmol/L (3.5-5.1)
[2023-06-15 13:07] LABS: INR <= 0.93 (0.85-1.15); PROTHROMBIN TIME 10.6 SEC (9.6-11.6)
[2023-06-15 13:09] LABS: ALBUMIN 3.1 g/dL (3.5-5.0); BILIRUBIN,TOTAL 0.3 mg/dL (0.2-1.0); PARTIAL THROMBOPLASTIN TIME 27.5 SEC (26.3-35.5)
[2023-06-15] MEDS ORDERED: HEPARIN 25,000 UNITS/250ML D5W 250 ML IV PRN (15:00)
[2023-06-15] MEDS: BENAZEPRIL HCL 10 MG TABLET PO SCH (15:54)
[2023-06-15] MEDS: FAMOTIDINE 20MG VIAL IV SCH (15:56)
[2023-06-15] MEDS: GABAPENTIN 100 MG CAPSULE PO SCH (15:56)
[2023-06-15] MEDS ORDERED: ACETAMINOPHEN 325 MG TAB PO PRN (16:00)
[2023-06-15 16:13] LABS: MAGNESIUM 1.7 mg/dL (1.80-2.40); THYROID STIMULATING HORMONE 2.51 uIU/mL (0.36-3.74)
[2023-06-15] MEDS: INSULIN HUMULIN R 100 UNIT/ML 3ML SQ SCH (16:30)
[2023-06-15] MEDS: HEPARIN 5,000 UNIT VIAL ONE (16:53)
[2023-06-15] MEDS: NA ZIRCON CYCLOSIL(LOKELMA 10GM) PO ONE (16:53)
[2023-06-15] MEDS ORDERED: DEXTROSE 50%-WATER 50 ML DISP.SYRIN IV PRN (17:00)
[2023-06-15] MEDS ORDERED: GLUCAGON 1MG KIT 1 MG ML IM PRN (17:00)
[2023-06-15] MEDS ORDERED: LABETALOL 20MG VIAL IV PRN (18:00)
[2023-06-15] MEDS: TURMERIC ROOT EXTRACT 1000 MG PO SCH (21:00)
[2023-06-15] MEDS: ATORVASTATIN 10 MG TABLET PO SCH (21:10)
[2023-06-15] MEDS: ACETAMINOPHEN 500 MG TABLET PO SCH (21:10)
[2023-06-15] MEDS: OXYBUTYNIN CHLORIDE 5 MG TABLET PO SCH (21:11)
[2023-06-15] MEDS: AMLODIPINE 2.5 MG TAB PO SCH (21:11)
[2023-06-15] MEDS: LATANOPROST 2.5 ML DROPS OU SCH (21:11)
[2023-06-15] MEDS: AMLODIPINE 2.5 MG TAB PO ONE (22:00)
[2023-06-15] MEDS ORDERED: NITROGLYCERIN 0.4 MG SL TAB SL PRN (23:00)
[2023-06-15] MEDS: LABETALOL 20MG SYG IV PRN (23:04)
[2023-06-15] MEDS: TRAMADOL HCL 50 MG TABLET PO ONE (23:05)
[2023-06-16] VITALS (9 sets, daily range): BP systolic 105–174; BP diastolic 51–98; PULSE 63–80; RESP 16–20; O2SAT 96
[2023-06-16] MEDS: MORPHINE 2 MG SYG IVP ONE ×2 (00:06→01:25)
[2023-06-16] MEDS: ONDANSETRON 4MG INJ IVP PRN (01:25)
[2023-06-16 01:28] LABS: INR 0.94 (0.85-1.15); PROTHROMBIN TIME 11.1 SEC (9.6-11.6)
[2023-06-16 01:53] LABS: PARTIAL THROMBOPLASTIN TIME > 139.0 SEC (26.3-35.5)
[2023-06-16] MEDS: ACETAMINOPHEN 500 MG TABLET PO PRN (02:13)
[2023-06-16] MEDS: HYDROMORPHONE 0.5 MG SYG (0.5MG/0.5ML) IVP ONE (02:48)
[2023-06-16 04:25] LABS: BASOPHILS # (AUTO) 0.03 K/uL (0.00-0.20); BASOPHILS % (AUTO) 0.3 % (0.0-5.0); EOSINOPHILS # (AUTO) 0.15 K/uL (0.00-0.70); EOSINOPHILS % (AUTO) 1.5 % (0.0-8.0); HEMATOCRIT 28.9 % (36-48); IMMATURE GRANULOCYTE ABSOLUTE 0.03 K/uL (0-1); LYMPHOCYTES # (AUTO) 1.9 K/uL (1.0-4.8); LYMPHOCYTES % (AUTO) 19.1 % (21.0-51.0); MEAN CORPUSCULAR HEMOGLOBIN 30.8 pg (27.0-33.0); MEAN CORPUSCULAR HGB CONC 34.3 g/dL (32.0-36.0); MONOCYTES # (AUTO) 0.5 K/uL (0.1-1.0); MONOCYTES % (AUTO) 5.2 % (3.0-13.0); NEUTROPHILS # (AUTO) 7.1 K/uL (1.8-7.7); NEUTROPHILS % (AUTO) 73.6 % (40.0-77.0); PLATELET COUNT (AUTO) 178 K/uL (130-400); RED BLOOD CELL COUNT(AUTO) 3.21 MIL/uL (4.00-5.50); RED CELL DISTRIBUTION WIDTH 12.4 % (11.0-15.5); WHITE BLOOD COUNT (AUTO) 9.7 K/uL (4.8-10.8)
[2023-06-16 04:30] LABS: RETICULOCYTE % (AUTO) 1.88 % (0.42-2.23)
[2023-06-16 04:47] LABS: % IRON SATURATION 30.7 % (22-44)
[2023-06-16 05:06] LABS: ALANINE AMINOTRANSFERASE 28 U/L (12-78); ALBUMIN 3.3 g/dL (3.5-5.0); ASPARTATE AMINOTRANSFERASE 21 U/L (10-37); BILIRUBIN,TOTAL 0.4 mg/dL (0.2-1.0); CARBON DIOXIDE 22 mmol/L (21-32); CHLORIDE 108 mmol/L (101-111); CREATINE KINASE, TOTAL 59 U/L (21-232); CREATININE 1.4 mg/dL (0.5-1.0); FERRITIN 163 ng/mL (15-150); GLOMERULAR FILTR. RATE CALC 38 mL/min (>90); GLUCOSE,RANDOM 162 mg/dL (70-105); POTASSIUM 4.8 mmol/L (3.5-5.1); SODIUM SERUM 140 mmol/L (136-145); TOTAL PROTEIN, SERUM 6.1 g/dL (6.0-8.3); UREA NITROGEN, BLOOD 36 mg/dL (7-18)
[2023-06-16] MEDS: MAGNESIUM 2GM PREMIX 50ML 50 ML IV SCH (06:13)
[2023-06-16] MEDS: FISH OIL 1000 MG/CAP PO SCH (07:55)
[2023-06-16] MEDS: (Cholecalciferol (Vitamin D3) (Vitamin D3) 125 MCG) PO SCH (07:59)
[2023-06-16] MEDS: (Cinnamon Bark (Cinnamon) 1,000 MG) PO SCH (08:01)
[2023-06-16] MEDS: MV MN PO SCH (08:01)
[2023-06-16] MEDS: FOLIC ACID PO SCH (08:01)
[2023-06-16] MEDS: CALCIUM PO SCH (08:01)
[2023-06-16] MEDS: VIT K PO SCH (08:01)
[2023-06-16] MEDS: ASCORBIC ACID 500 MG TAB PO SCH (08:02)
[2023-06-16] MEDS ORDERED: NON-FORMULARY MEDICATION 1 EACH (Fish Oil/Dha/Epa (Fish Oil 1,200 mg Fish Oil) 1 EACH) PO SCH (09:00)
[2023-06-16] MEDS ORDERED: NON-FORMULARY MEDICATION 1 EACH (Ascorbic Acid (Vitamin C) 1,000 MG) PO SCH (09:00)
[2023-06-16] MEDS: ONDANSETRON 4MG INJ IVP ONE (10:21)
[2023-06-16 15:06] LABS: INR 0.94 (0.85-1.15); PROTHROMBIN TIME 11.1 SEC (9.6-11.6)
[2023-06-16 15:47] LABS: PARTIAL THROMBOPLASTIN TIME > 139.0 SEC (26.3-35.5)
[2023-06-16] MEDS: FAMOTIDINE 20MG VIAL IV ONE (20:50)
[2023-06-16] MEDS: AMLODIPINE 5 MG TAB PO SCH (20:50)
[2023-06-16 22:56] LABS: INR <= 0.93 (0.85-1.15)
[2023-06-16 23:19] LABS: PARTIAL THROMBOPLASTIN TIME > 139.0 SEC (26.3-35.5)
[2023-06-17] VITALS (7 sets, daily range): BP systolic 134–163; BP diastolic 54–79; PULSE 64–82; RESP 18; O2SAT 96–97
[2023-06-17] MEDS: HYDROMORPHONE 0.5 MG SYG (0.5MG/0.5ML) IVP ONE (00:26)
[2023-06-17 08:21] LABS: BASOPHILS # (AUTO) 0.04 K/uL (0.00-0.20); BASOPHILS % (AUTO) 0.6 % (0.0-5.0); EOSINOPHILS % (AUTO) 4.2 % (0.0-8.0); HEMATOCRIT 31.1 % (36-48); IMMATURE GRANULOCYTE ABSOLUTE 0.03 K/uL (0-1); LYMPHOCYTES # (AUTO) 2.6 K/uL (1.0-4.8); LYMPHOCYTES % (AUTO) 35.8 % (21.0-51.0); MEAN CORPUSCULAR HEMOGLOBIN 31.2 pg (27.0-33.0); MEAN CORPUSCULAR HGB CONC 30.9 g/dL (32.0-36.0); MONOCYTES # (AUTO) 0.5 K/uL (0.1-1.0); MONOCYTES % (AUTO) 6.8 % (3.0-13.0); NEUTROPHILS # (AUTO) 3.8 K/uL (1.8-7.7); NEUTROPHILS % (AUTO) 52.2 % (40.0-77.0); PLATELET COUNT (AUTO) 155 K/uL (130-400); RED BLOOD CELL COUNT(AUTO) 3.08 MIL/uL (4.00-5.50); RED CELL DISTRIBUTION WIDTH 13.1 % (11.0-15.5); WHITE BLOOD COUNT (AUTO) 7.2 K/uL (4.8-10.8)
[2023-06-17] MEDS: LABETALOL 20MG SYG IV ONE (16:09)
[2023-06-17] MEDS: NA ZIRCON CYCLOSIL(LOKELMA 10GM) PO ONE (16:09)
[2023-06-17] MEDS: HEPARIN 25,000 UNITS/250ML D5W 250 ML IV SCH (21:01)
[2023-06-18] VITALS (10 sets, daily range): BP systolic 127–185; BP diastolic 49–74; PULSE 76–86; RESP 18; O2SAT 98
[2023-06-18] MEDS: HEPARIN 5,000 UNIT VIAL IV PRN (03:30)
[2023-06-18 07:13] LABS: BASOPHILS # (AUTO) 0.02 K/uL (0.00-0.20); BASOPHILS % (AUTO) 0.2 % (0.0-5.0); EOSINOPHILS # (AUTO) 0.11 K/uL (0.00-0.70); EOSINOPHILS % (AUTO) 1.1 % (0.0-8.0); HEMATOCRIT 30.5 % (36-48); IMMATURE GRANULOCYTE ABSOLUTE 0.05 K/uL (0-1); LYMPHOCYTES # (AUTO) 1.7 K/uL (1.0-4.8); LYMPHOCYTES % (AUTO) 17.1 % (21.0-51.0); MEAN CORPUSCULAR HEMOGLOBIN 31.2 pg (27.0-33.0); MEAN CORPUSCULAR HGB CONC 34.1 g/dL (32.0-36.0); MEAN CORPUSCULAR VOLUME 91.6 fL (79-99); MONOCYTES # (AUTO) 0.8 K/uL (0.1-1.0); MONOCYTES % (AUTO) 7.9 % (3.0-13.0); NEUTROPHILS # (AUTO) 7.4 K/uL (1.8-7.7); NEUTROPHILS % (AUTO) 73.2 % (40.0-77.0); PLATELET COUNT (AUTO) 173 K/uL (130-400); RED BLOOD CELL COUNT(AUTO) 3.33 MIL/uL (4.00-5.50); RED CELL DISTRIBUTION WIDTH 12.4 % (11.0-15.5); WHITE BLOOD COUNT (AUTO) 10.1 K/uL (4.8-10.8)
[2023-06-18 07:32] LABS: ALBUMIN 3.3 g/dL (3.5-5.0); BILIRUBIN,TOTAL 0.8 mg/dL (0.2-1.0); CREATININE 1.6 mg/dL (0.5-1.0); POTASSIUM 4.7 mmol/L (3.5-5.1); TOTAL PROTEIN, SERUM 6.4 g/dL (6.0-8.3)
[2023-06-18] MEDS: APIXABAN 5 MG TABLET PO SCH (21:32)
[2023-06-18] MEDS: CLOPIDOGREL 75MG TAB PO SCH (21:35)
[2023-06-19 04:36] LABS: HEMATOCRIT 28.3 % (36-48); MEAN CORPUSCULAR HGB CONC 33.2 g/dL (32.0-36.0); MEAN CORPUSCULAR VOLUME 90.4 fL (79-99); RED BLOOD CELL COUNT(AUTO) 3.13 MIL/uL (4.00-5.50); RED CELL DISTRIBUTION WIDTH 12.5 % (11.0-15.5); WHITE BLOOD COUNT (AUTO) 9.3 K/uL (4.8-10.8)
[2023-06-19 04:53] VITALS: BP 154/72; PULSE 88; RESP 18
[2023-06-19 04:59] LABS: ALBUMIN 2.9 g/dL (3.5-5.0); BILIRUBIN,TOTAL 0.8 mg/dL (0.2-1.0); CREATININE 1.5 mg/dL (0.5-1.0); POTASSIUM 4.3 mmol/L (3.5-5.1); TOTAL PROTEIN, SERUM 5.8 g/dL (6.0-8.3)
[2023-06-19 07:15] VITALS: BP 157/66; PULSE 77; RESP 18
[2023-06-19] MEDS ORDERED: BENA10TA88 PO (08:41)
[2023-06-19] MEDS ORDERED: AMLO5TAB4 PO (08:41)
[2023-06-19] MEDS ORDERED: CLOP-31 PO (08:41)
[2023-06-19] MEDS ORDERED: APIX5TAB PO (08:41)
[2023-06-19] MEDS ORDERED: NITR100C PO (19:02)
== END 2023-06-19 10:48 | disposition home or self-care (01) | DRG 300 ==
LOC: EDH 10:54 → EDHIP 15:38 → 2AH 17:17
PROVIDERS: ADMIT Internal Medicine; ATTEND Internal Medicine
DX: I74.2 Embolism and thrombosis of arteries of the upper extremities (principal); I24.89 Other forms of acute ischemic heart disease; Z68.41 Body mass index [BMI] 40.0-44.9, adult; N18.30 Chronic kidney disease, stage 3 unspecified; I12.9 Hypertensive chronic kidney disease with stage 1 through stage 4 chronic kidney disease, or unspecified chronic kidney disease; I35.0 Nonrheumatic aortic (valve) stenosis; E11.22 Type 2 diabetes mellitus with diabetic chronic kidney disease; E11.649 Type 2 diabetes mellitus with hypoglycemia without coma; I16.0 Hypertensive urgency; D63.1 Anemia in chronic kidney disease; E11.51 Type 2 diabetes mellitus with diabetic peripheral angiopathy without gangrene; E66.9 Obesity, unspecified; E78.00 Pure hypercholesterolemia, unspecified; E87.5 Hyperkalemia; I25.10 Atherosclerotic heart disease of native coronary artery without angina pectoris; Z79.84 Long term (current) use of oral hypoglycemic drugs; Z82.49 Family history of ischemic heart disease and other diseases of the circulatory system; Z83.3 Family history of diabetes mellitus; Z90.49 Acquired absence of other specified parts of digestive tract; Z90.710 Acquired absence of both cervix and uterus; Z96.653 Presence of artificial knee joint, bilateral; Z88.1 Allergy status to other antibiotic agents; Z88.8 Allergy status to other drugs, medicaments and biological substances; Z88.0 Allergy status to penicillin; Z79.899 Other long term (current) drug therapy
CPT/HCPCS: 36415; 80053; 82550; 82607; 82728; 82746; 82948; 83036; 83540; 83550; 83735; 84443; 84484; 85025; 85027; 85045; 85610; 85730; 86156; 86850; 86870; 86900; 86901; 93005; 93931; 96374; G0378; J1170; J1644; J1815; J2270; J2405; J3475; J3490; A4600

== ENCOUNTER 2023-06-19 15:46 | Emergency (ER) | payer OTHER ==
[~2023-06-19] VITALS: Ht 152.4 cm; Wt 98.0 kg
[~2023-06-19 15:46] MED LIST changes: +AMLO5TAB4 PO; +APIX5TAB PO; +BENA10TA88 PO; +CLOP-31 PO
[2023-06-19 16:23] LABS: APPEARANCE,URINE CLEAR (CLEAR); BILIRUBIN,URINE NEGATIVE (NEGATIVE); COLOR,URINE LIGHT-YELLOW (YELLOW); GLUCOSE, URINE (UA) NEGATIVE (NEGATIVE); KETONES,URINE NEGATIVE (NEGATIVE); LEUKOCYTE ESTERASE ,URINE 250 Leu/uL (NEGATIVE); NITRATE,URINE NEGATIVE (NEGATIVE); OCCULT BLOOD,URINE SMALL (NEGATIVE); PH,URINE 5.5 (5.0-8.0); PROTEIN,URINE 30 mg/dL (NEGATIVE); UROBILINOGEN,URINE 0.2 mg/dL (0.2-1.0)
[2023-06-19 16:24] LABS: ADD UA MICROSCOPIC YES
[2023-06-19 16:27] LABS: BACTERIA,URINE RARE /HPF (None Seen); SQUAMOUS EPITHELIAL CELL,UR RARE /HPF (0-2)
[2023-06-19 16:49] LABS: BASOPHILS # (AUTO) 0.03 K/uL (0.00-0.20); BASOPHILS % (AUTO) 0.3 % (0.0-5.0); EOSINOPHILS # (AUTO) 0.15 K/uL (0.00-0.70); EOSINOPHILS % (AUTO) 1.4 % (0.0-8.0); HEMATOCRIT 29.8 % (36-48); IMMATURE GRANULOCYTE ABSOLUTE 0.06 K/uL (0-1); LYMPHOCYTES # (AUTO) 2.2 K/uL (1.0-4.8); MEAN CORPUSCULAR HEMOGLOBIN 30.8 pg (27.0-33.0); MEAN CORPUSCULAR HGB CONC 34.6 g/dL (32.0-36.0); MEAN CORPUSCULAR VOLUME 89.2 fL (79-99); MONOCYTES % (AUTO) 9.1 % (3.0-13.0); NEUTROPHILS # (AUTO) 7.4 K/uL (1.8-7.7); NEUTROPHILS % (AUTO) 68.6 % (40.0-77.0); PLATELET COUNT (AUTO) 168 K/uL (130-400); RED BLOOD CELL COUNT(AUTO) 3.34 MIL/uL (4.00-5.50); RED CELL DISTRIBUTION WIDTH 12.3 % (11.0-15.5); WHITE BLOOD COUNT (AUTO) 10.8 K/uL (4.8-10.8)
[2023-06-19] MEDS: 0.9%NACL 1000ML 1,000 ML IV ONE (16:51)
[2023-06-19] MEDS: KETOROLAC 15MG/ML VIAL (15MG/ML) IV ONE (16:52)
[2023-06-19 16:59] LABS: CREATININE 1.6 mg/dL (0.5-1.0); POTASSIUM 4.3 mmol/L (3.5-5.1)
[2023-06-19 17:04] LABS: ALBUMIN 3.3 g/dL (3.5-5.0); BILIRUBIN,TOTAL 0.6 mg/dL (0.2-1.0); TOTAL PROTEIN, SERUM 6.6 g/dL (6.0-8.3)
[2023-06-19] MEDS ORDERED: NITR100C PO (19:02)
[2023-06-19 19:35] VITALS: BP 144/64; PULSE 69; RESP 18; O2SAT 99
== END 2023-06-19 19:37 | disposition home or self-care (01) ==
LOC: EDH 15:46
DX: K57.90 Diverticulosis of intestine, part unspecified, without perforation or abscess without bleeding (principal); I12.9 Hypertensive chronic kidney disease with stage 1 through stage 4 chronic kidney disease, or unspecified chronic kidney disease; E11.22 Type 2 diabetes mellitus with diabetic chronic kidney disease; N18.9 Chronic kidney disease, unspecified; N39.0 Urinary tract infection, site not specified; E11.65 Type 2 diabetes mellitus with hyperglycemia; N83.201 Unspecified ovarian cyst, right side; D63.1 Anemia in chronic kidney disease; E78.00 Pure hypercholesterolemia, unspecified; K57.30 Diverticulosis of large intestine without perforation or abscess without bleeding; N83.202 Unspecified ovarian cyst, left side; Z79.82 Long term (current) use of aspirin; Z79.899 Other long term (current) drug therapy; Z90.49 Acquired absence of other specified parts of digestive tract; Z90.710 Acquired absence of both cervix and uterus; Z98.890 Other specified postprocedural states; Z88.0 Allergy status to penicillin; Z88.1 Allergy status to other antibiotic agents; Z88.5 Allergy status to narcotic agent
CPT/HCPCS: 99285; 74176; 96374; 96361; 80053; 83690; 85025; 87088; 81001; 36415; J7030; J1885

== ENCOUNTER → 2023-06-26 | Outpatient (CLI) | payer OTHER ==
[~2023-06-26] MED LIST changes: -AMLO-257 PO; +NITR100C PO
== END | disposition home or self-care (01) ==
LOC: SHCH 13:12
PROVIDERS: ATTEND Student in an Organized Health Care Education/Training Program
DX: I70.201 Unspecified atherosclerosis of native arteries of extremities, right leg (principal)
CPT/HCPCS: 93931

== ENCOUNTER → 2023-09-10 | Outpatient (CLI) | payer OTHER ==
[2023-09-10 12:30] LABS: CREATININE 1.5 mg/dL (0.5-1.0); POTASSIUM 5.2 mmol/L (3.5-5.1)
== END | disposition home or self-care (01) ==
LOC: LAB 08:18
PROVIDERS: ATTEND Internal Medicine Cardiovascular Disease
DX: I10 Essential (primary) hypertension (principal)
CPT/HCPCS: 36415; 80048

== ENCOUNTER 2023-09-29 07:09 | Day surgery (SDC) | payer OTHER ==
[~2023-09-29] VITALS: Ht 152.4 cm; Wt 96.6 kg
[2023-09-29 07:30] VITALS: BP 169/53; PULSE 80; RESP 18
[2023-09-29] MEDS: 0.9%NACL 1000ML 1,000 ML IV ONE (08:06)
[2023-09-29] MEDS ORDERED: IOHEXOL 350 MG/ML 100ML INFUS..BTL IV ONE (13:01)
[2023-09-29 14:15] VITALS: BP 157/62; PULSE 71; RESP 16
[2023-09-29 17:15] VITALS: BP 149/76; PULSE 63; RESP 18
[2023-09-29 17:30] VITALS: BP 155/78; PULSE 63; RESP 18
== END 2023-09-29 17:47 | disposition home or self-care (01) ==
LOC: RAH 07:09 → EDSTATUS 09:00 → RAH 17:47
PROVIDERS: ATTEND Internal Medicine Cardiovascular Disease
DX: I35.0 Nonrheumatic aortic (valve) stenosis (principal); I25.10 Atherosclerotic heart disease of native coronary artery without angina pectoris
CPT/HCPCS: 74174; 75574; 82948; J7030; Q9967; A4215; A4222; A4221; A4663; A4216; A4606; A4223 ×3; 96360; 96361

== ENCOUNTER 2024-06-12 12:07 | Observation (INO) | payer OTHER ==
[~2024-06-12] VITALS: Ht 152.4 cm; Wt 90.7 kg
--- NOTE | 2024-06-12 12:34 | ERN ---
ED Note History of Present Illness Stated Complaint: ABDOMINAL PAIN Time Seen by MD: 12:08 Dictation: 83-YEAR-OLD FEMALE HERE WITH HER DAUGHTER WITH COMPLAINTS OF A SUDDEN ONSET OF A PERIUMBILICAL AND LOWER ABDOMINAL PAIN WITH NAUSEA VOMITING ONSET LAST NIGHT. NO FEVER NO CHILLS NO CHANGE IN URINATION. SHE HAS NOT TAKEN ANYTHING PRIOR TO ARRIVAL TODAY FOR PAIN. Allergies: Coded Allergies: codeine (Verified Allergy, Unknown, RASH, 07/16/14) piperacillin (Verified Adverse Reaction, Severe, 12/28/18) pt c/o pain to both flank ,legs with numbness tazobactam (Verified Adverse Reaction, Severe, 12/28/18) pt c/o pain to both flank ,legs with numbness levofloxacin (Verified Adverse Reaction, Unknown, muscle pain, 12/28/18) Home Meds Active Scripts Nitrofurantoin Macrocrystal (Nitrofurantoin) 100 Mg Capsule, 100 MG PO BID for 7 Days, #14 CAP Prov:AFSANEH DUNCAN NP 06/19/23 Clopidogrel Bisulfate (Plavix) 75 Mg Tablet, 75 MG PO DAILY, #30 TAB 0 Refills Prov:[facility] 06/19/23 Benazepril HCl (Lotensin) 10 Mg Tablet, 40 MG PO Q24H, #30 TAB 0 Refills Prov:[facility]ALL JIMENEZBASILIO 06/19/23 Apixaban (Eliquis) 5 Mg Tablet, 5 MG PO BID, #60 TAB Prov:[facility] 06/19/23 Amlodipine Besylate (Norvasc 5Mg Tab) 5 Mg Tablet, 5 MG PO HS, #30 TAB Prov:[facility] 06/19/23 Reported Medications Latanoprost (Latanoprost) 0.005 % Drops, 1 DROP OU HS, DROP 06/11/23 Mv-Mn/Folic Acid/Calcium/Vit K (Women's 50 Plus Multivit Tab) 400 Mcg-500 Mg Calcium-20 Mcg Tablet, 1 EACH PO DAILY, TAB 06/11/23 Fish Oil/Dha/Epa (Fish Oil 1,200 mg Fish Oil) 1,200 Mg-144 Mg-216 Mg Capsule, 1 EACH PO DAILY, CAP 06/11/23 Cinnamon Bark (Cinnamon) 500 Mg Capsule, 1000 MG PO DAILY, CAP 06/11/23 Ascorbic Acid (Vitamin C) 1,000 Mg Tablet, 1000 MG PO DAILY, TAB 06/11/23 Turmeric Root Extract (Turmeric) 500 Mg Capsule, 1000 MG PO BID, CAP 06/11/23 Cholecalciferol (Vitamin D3) (Vitamin D3) 125 Mcg (5000 Unit) Tablet, 125 MCG PO DAILY, TAB 06/11/23 Acetaminophen (Acetaminophen Extra Strength) 500 Mg Tablet, 1000 MG PO BID, TAB 06/11/23 Atorvastatin Calcium (LIPITOR) 20 Mg Tab, 20 MG PO HS, TAB 06/11/23 Benazepril HCl (Benazepril HCl) 40 Mg Tablet, 40 MG PO DAILY, TAB 11/02/20 Oxybutynin Chloride (Oxybutynin Chloride) 5 Mg Tablet, 5 MG PO BID, TAB 10/23/20 Gabapentin (Gabapentin) 100 Mg Capsule, 100 MG PO BID, CAP 12/26/18 Glimepiride (Glimepiride) 4 Mg Tablet, 4 MG PO BID, TAB 07/11/14 Past Medical History Past Medical History: Diabetes-Type II, Glaucoma, High Cholesterol, Hypertension Additional Past Medical Hx: GLAUCOMA, SPINAL STENOSIS Surgical History: Cholecystectomy Surgical History Other: BILATERAL KNEES RT SHOULDER Additional History Comments: Hysterectomy and abdominal hernia repair Family History: Negative Social History: Negative, Lives with family History: Not Applicable : 5 Para: 4 Aborts: 1 RN Note Reviewed/Agreed w/PFSH: Yes Review of System Dictation CONSTITUTIONAL: NEGATIVE EXCEPT FOR HPI HEAD/FACE: NEGATIVE EXCEPT FOR HPI EENT: NEGATIVE EXCEPT FOR HPI RESPIRATORY: NEGATIVE EXCEPT FOR HPI GASTROINTESTINAL/ABDOMINAL: NEGATIVE EXCEPT FOR HPI PERIUMBILICAL PAIN WITH NAUSEA VOMITING GENITOURINARY: NEGATIVE EXCEPT FOR HPI MUSCULOSKELETAL: NEGATIVE EXCEPT FOR HPI INTEGUMENTARY: NEGATIVE EXCEPT FOR HPI NEUROLOGICAL/PSYCH: NEGATIVE EXCEPT FOR HPI HEMATOLOGIC/LYMPHATIC: NEGATIVE EXCEPT FOR HPI ALL SYSTEMS NEGATIVE, EXCEPT NOTED ABOVE. 13 POINT REVIEW OF SYSTEMS ASSESSED AND ALL NEGATIVE EXCEPT FOR ABOVE. Initial Vital Sign VS Vital Signs Date Time Temp Pulse Resp B/P (MAP) Pulse Ox O2 Delivery O2 Flow Rate FiO2 06/12/24 12:38 98.8 83 16 180/80 99 Room Air 0 06/12/24 12:38 21 Physical Exam Dictation VITAL SIGNS REVIEWED GENERAL APPEARANCE: ALERT, ORIENTED X 3, MODERATE ACUTE DISTRESS, WELL DEVELOPED, NOURISHED. OBESE HEAD AND FACE: NON-TRAUMATIC. EYES: PERRL, PINK CONJUNCTIVAS, EYELID NO TRAUMA, ANTERIOR CHAMBER WITH ARCUS SENILIS. EARS: PINNAS INTACT AND NO SIGNS OF TRAUMA OR ERYTHEMA EAR CANALS CLEAR AND NO DISCHARGE TM NO ERYTHEMA NOSE: NO DISCHARGE, NO BLEEDING. OROPHARYNX: MOUTH NORMAL, TONGUE PINK, PHARYNX CLEAR,NO ERYTHEMA, TONSILS NO EXUDATES, NO ABSCESSES NOTED, MUCOUS MEM BRANE MOIST NECK: SUPPLE, NON-TENDER, NO THYROMEGALY, NO MASSES, NO JVD, NO BRUITS BREAST:DEFERRED CHEST:NO TENDERNESS, NO CREPITUS, NO PARADOXICAL MOVEMENT, NO RETRACTIONS LUNGS:CLEAR, WELL-VENTILATED, SYMMETRIC, NO RALES, NO WHEEZING, NO RHONCHI, NO STRIDOR, GOOD BREATH SOUNDS BILATERALLY HEART: REGULAR RATE, REGULAR RHYTHM, NO MURMUR, NO GALLOPS VASCULAR: NO PERIPHERAL EDEMA, ABDOMEN: SOFT, POSITIVE BOWEL SOUNDS, NONDISTENDED, NO GUARDING, MODERATE SUPRAPUBIC AND PERIUMBILICAL PAIN TENDERNESS. RECTAL: DEFERRED GENITAL: DEFERRED NEUROLOGICAL: NORMAL SPEECH, MOTOR FUNCTION INTACT, SENSORY FUNCTION INTACT MUSCULOSKELETAL: NECK NONTENDER, FULL RANGE OF MOTION, BACK NONTENDER, FULL RANGE OF MOTION, EXTREMITIES: NONTENDER, FULL RANGE OF MOTION SKIN: COLOR PINK, DRY, NO TURGOR, NO RASH, NO LACERATIONS, NO ABRASIONS, NO CONTUSIONS. LYMPHATIC: DEFERRED Results (Laboratory/Radiology) Laboratory/Radiology Laboratory Tests Test 06/12/24 12:56 White Blood Count 12.6 K/uL (4.8-10.8) H Red Blood Count 4.11 MIL/uL (4.00-5.50) Hemoglobin 12.1 g/dL (12.0-16.0) Hematocrit 37.2 % (36-48) Mean Corpuscular Volume 90.5 fL (79-99) Mean Corpuscular Hemoglobin 29.4 pg (27.0-33.0) Mean Corpuscular Hemoglobin Concent 32.5 g/dL (32.0-36.0) Red Cell Distribution Width 13.3 % (11.0-15.5) Platelet Count 253 K/uL (130-400) Mean Platelet Volume 9.8 fL (7.5-10.5) Immature Granulocyte % (Auto) 0.5 % (0-1) Neutrophils (%) (Auto) 84.5 % (40.0-77.0) H Lymphocytes (%) (Auto) 11.3 % (21.0-51.0) L Monocytes (%) (Auto) 2.9 % (3.0-13.0) L Eosinophils (%) (Auto) 0.2 % (0.0-8.0) Basophils (%) (Auto) 0.6 % (0.0-5.0) Neutrophils # (Auto) 10.6 K/uL (1.8-7.7) H Lymphocytes # (Auto) 1.4 K/uL (1.0-4.8) Monocytes # (Auto) 0.4 K/uL (0.1-1.0) Eosinophils # (Auto) 0.02 K/uL (0.00-0.70) Basophils # (Auto) 0.07 K/uL (0.00-0.20) Absolute Immature Granulocyte (auto 0.06 K/uL (0-1) Nucleated Red Blood Cells 0.0 % (0.0-0.19) Sodium Level 139 mmol/L (136-145) Potassium Level 5.1 mmol/L (3.5-5.1) Chloride Level 105 mmol/L (101-111) Carbon Dioxide Level 22 mmol/L (21-32) Blood Urea Nitrogen 41 mg/dL (7-18) H Creatinine 1.4 mg/dL (0.5-1.0) H Glomerular Filtration Rate Calc 38 mL/min (>90) Random Glucose 252 mg/dL (70-105) H Total Calcium 10.4 mg/dL (8.5-10.1) H Troponin I High Sensitivity 17 ng/L (4-50) Lipase 44 U/L (16-77) HISTORY: Pain COMPARISON: 06/19/2023 TECHNIQUE: Multiple sequential axial images of the abdomen and pelvis were obtained from the dome of the diaphragm through symphysis pubis. Patient was not given contrast through intravenous route. Oral contrast was not given. FINDINGS: No pleural effusion is seen bilaterally. Minimal bilateral pulmonary infiltrates are seen. Degenerative changes of the thoracolumbar spine are present. The heart is not enlarged. Vascular calcifications are seen. Post cholecystectomy changes are seen. There is diverticulosis. Post hernia repair changes are seen. Mild mesenteric fat stranding is seen adjacent to the pancreatic head and duodenum may be related to duodenum nidus versus pancreatitis. Lipase correlation may be helpful. The liver, spleen, adrenal glands and pancreas are unremarkable. There is no evidence of hydronephrosis bilaterally. No evidence of renal stone is seen. Fecal material is seen in the colon. There are normal size retroperitoneal and mesenteric lymph nodes. No ascites is seen. Atherosclerotic changes are present. No CT evidence of acute appendicitis is seen. Pelvic sidewalls are symmetric bilaterally. Bladder is moderately distended with air-fluid level and clinical correlation is recommended. Uterus is not seen. IMPRESSION: 1. Diverticulosis. No ascites is seen. Mild mesenteric fat stranding is seen adjacent to the pancreatic head and duodenum may be related to duodenum nidus versus pancreatitis. Lipase correlation may be helpful. 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 ED Course ED Course Orders Procedure Category Date Status Time Cbc With Differential LAB 06/12/24 Complete 12:30 Troponin I High LAB 06/12/24 Complete Sensitivity 12:30 Urinalysis Profile LAB 06/12/24 Logged 12:30 12 Lead Ekg Tracing- EKG 06/12/24 Resulted Technical 12:30 0.9%Nacl 1000ml (Ns PHA 06/12/24 Complete 1000ml) 12:30 Ondansetron 4mg Inj PHA 06/12/24 Complete (Zofran 4mg Inj) 12:30 Lipase LAB 06/12/24 Complete 12:30 Basic Metabolic Panel LAB 06/12/24 Complete 12:30 Ketorolac PHA 06/12/24 Complete Tromethamine 30mg/Ml 12:30 Ct Abdomen/Pelvis W/O CT 06/12/24 Resulted Contrast 14:31 Hydralazine 20mg Inj PHA 06/12/24 In Process (Apresoline 20mg In 16:30 Pantoprazole 40mg Inj PHA 06/12/24 In Process (Protonix 40mg Inj 18:00 Admit Orders ADM 06/12/24 Transmitted 18:33 Keep Patient Npo CPOE 06/12/24 Transmitted 18:33 Current Medications Medications (Trade) Dose Ordered Sig/David Route PRN Reason Start Time Stop Time Status Last Admin Dose Admin Hydralazine HCl (APRESOLine 20MG INJ) 10 mg ONCE IV 06/12/24 16:30 06/12/24 20:30 06/12/24 16:35 Ketorolac Tromethamine (toRADol) 30 mg ONCE ONCE IVP 06/12/24 12:30 06/12/24 12:39 DC 06/12/24 14:46 Ondansetron HCl (zoFRAN 4MG INJ) 4 mg ONCE ONCE IVP 06/12/24 12:30 06/12/24 12:34 DC 06/12/24 14:46 Pantoprazole Sodium (PROTonix 40MG INJ) 40 mg ONCE IVP 06/12/24 18:00 06/12/24 22:00 Sodium Chloride 1,000 ml @ 0 mls/hr ONCE ONCE IV 06/12/24 12:30 06/12/24 12:34 DC 06/12/24 14:46 Vital Signs Date Time Temp Pulse Resp B/P (MAP) Pulse Ox O2 Delivery O2 Flow Rate FiO2 06/12/24 12:38 98.8 83 16 180/80 99 Room Air* 0 21 06/12/24 12:38 98.8 83 16 180/80 99 Room Air 0 1725/spoke with reviewed labs CT and treatment. She agreed to admit patient to the hospital. HEART Score Response (Comments) Value EKG: Repolarization changes 1 Age: > 65yrs (+2) 2 Risk Factors: 3+ risk factors (+2) 2 Initial Troponin: Normal limit (0) 0 Total 5 Medical Decision Making MDM MDM: Differential diagnosis: Uncontrolled diabetes//nausea vomiting/diverticulitis/appendicitis/UTI/ACS Rationale: Tests considered and ordered secondary to shared decision making include: labs, ECG and radiology Previous outside records reviewed: Old ER visits. Risk of complication and/or morbidity or mortality of patient management: Moderate Medications-Per medication reconciliation Need for hospitalization: Patient does meet criteria for hospitalization. Admission for nausea vomiting dehydration. Uncontrolled diabetes Need for emergency major/minor surgery: No There are no social concerns with this patient. Prescription drug management Prescriptions will include symptomatic care Patient's prior external medical records from other ER visits were reviewed by me as indicated. Prior testing and results from previous visits were reviewed. Prior tests were taken into account with medical decision making and resource utilization, independent historian/historians were used to obtain complete medical history. I independently interpreted the test that were performed, results were reviewed by me and considered findings on radiology if ordered. Medical management and examination interpretation discussions were had by me with other qualified healthcare professionals as indicated for the patient's care. DX & DISP Disposition: Inpatient Decision to Admit Time: 16:25 Departure Impression: Primary Impression: Intractable nausea and vomiting Additional Impressions: Uncontrolled diabetes mellitus, Diverticulosis, Uncontrolled hypertension, Acute colitis Condition: Stable Referrals: LINDA BISHOP MD (PCP) Time of Disposition: 17:35 I have reviewed the case, and I agree with, Diagnosis and Plan I performed the substantive portion of the visit. I have reviewed and personally made and approve the management plan that is documented in the notes by myself or the BRET. I acknowledge full responsibility for the patient's management plan. AFSANEH DUNCAN NP Jun 12, 2024 12:33 NIKKI RASMUSSEN MD Jun 12, 2024 18:46
--- NOTE | 2024-06-12 12:46 | EKG ---
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
[2024-06-12 13:05] LABS: BASOPHILS # (AUTO) 0.07 K/uL (0.00-0.20); BASOPHILS % (AUTO) 0.6 % (0.0-5.0); EOSINOPHILS # (AUTO) 0.02 K/uL (0.00-0.70); EOSINOPHILS % (AUTO) 0.2 % (0.0-8.0); HEMATOCRIT 37.2 % (36-48); IMMATURE GRANULOCYTE ABSOLUTE 0.06 K/uL (0-1); LYMPHOCYTES # (AUTO) 1.4 K/uL (1.0-4.8); LYMPHOCYTES % (AUTO) 11.3 % (21.0-51.0); MEAN CORPUSCULAR HEMOGLOBIN 29.4 pg (27.0-33.0); MEAN CORPUSCULAR HGB CONC 32.5 g/dL (32.0-36.0); MEAN CORPUSCULAR VOLUME 90.5 fL (79-99); MONOCYTES # (AUTO) 0.4 K/uL (0.1-1.0); MONOCYTES % (AUTO) 2.9 % (3.0-13.0); NEUTROPHILS # (AUTO) 10.6 K/uL (1.8-7.7); NEUTROPHILS % (AUTO) 84.5 % (40.0-77.0); PLATELET COUNT (AUTO) 253 K/uL (130-400); RED BLOOD CELL COUNT(AUTO) 4.11 MIL/uL (4.00-5.50); RED CELL DISTRIBUTION WIDTH 13.3 % (11.0-15.5); WHITE BLOOD COUNT (AUTO) 12.6 K/uL (4.8-10.8)
[2024-06-12 13:14] LABS: CREATININE 1.4 mg/dL (0.5-1.0); POTASSIUM 5.1 mmol/L (3.5-5.1)
[2024-06-12] MEDS: ketOROlac 30MG VIAL (30MG/ML) IVP ONE (14:46)
[2024-06-12] MEDS: ondanSETRON 4MG INJ IVP ONE ×2 (14:46→19:27)
[2024-06-12] MEDS: 0.9%NACL 1000ML 1,000 ML IV ONE (14:46)
--- NOTE | 2024-06-12 15:45 | HMCIMG ---
CT ABDOMEN/PELVIS W/O CONTRAST HISTORY: Pain COMPARISON: 06/19/2023 TECHNIQUE: Multiple sequential axial images of the abdomen and pelvis were obtained from the dome of the diaphragm through symphysis pubis. Patient was not given contrast through intravenous route. Oral contrast was not given. FINDINGS: No pleural effusion is seen bilaterally. Minimal bilateral pulmonary infiltrates are seen. Degenerative changes of the thoracolumbar spine are present. The heart is not enlarged. Vascular calcifications are seen. Post cholecystectomy changes are seen. There is diverticulosis. Post hernia repair changes are seen. Mild mesenteric fat stranding is seen adjacent to the pancreatic head and duodenum may be related to duodenum nidus versus pancreatitis. Lipase correlation may be helpful. The liver, spleen, adrenal glands and pancreas are unremarkable. There is no evidence of hydronephrosis bilaterally. No evidence of renal stone is seen. Fecal material is seen in the colon. There are normal size retroperitoneal and mesenteric lymph nodes. No ascites is seen. Atherosclerotic changes are present. No CT evidence of acute appendicitis is seen. Pelvic sidewalls are symmetric bilaterally. Bladder is moderately distended with air-fluid level and clinical correlation is recommended. Uterus is not seen. IMPRESSION: 1. Diverticulosis. No ascites is seen. Mild mesenteric fat stranding is seen adjacent to the pancreatic head and duodenum may be related to duodenum nidus versus pancreatitis. Lipase correlation may be helpful. CT was performed with one or more following dose reduction techniques: automated exposure control, adjustment of the mA and kv according to patient's size, or use of a iterative reconstruction technique.
[2024-06-12] MEDS: hydrALAZine 20MG/ML VIAL IV SCH (16:35)
[2024-06-12] MEDS ORDERED: PANTOPrazole 40 MG/VIAL IVP SCH (18:00)
[2024-06-12] MEDS: PANTOPrazole 40 MG/VIAL IVP ONE (19:27)
--- NOTE | 2024-06-12 20:17 | HP ---
[facility] Date of Service: Jun 12, 2024 Time of Service: 20:17 PCP: Kris Sebastian HISTORY OF PRESENT ILLNESS: This is an 83-year-old female with past medical history of hypertension, hyperlipidemia, obesity, severe aortic stenosis status post TAVR, stroke with left-sided paralysis, nonobstructive Coronary artery disease, type 2 diabetes , glaucoma and CKD who presents to the ED for complaints of periumbilical and lower abdominal pain associated with nausea vomiting x 2 started last night. As per daughter patient had fajitas rice and beans and potato salad prior to symptoms.Patient reports she initially had a diarrhea today x1 and followed with a normal colored and soft BM today. Seen and examined patient in the ER awake,alert and oriented appears uncomfortable complaining 10/10 pain level.Patient has abdominal tenderness around mid abdomen and bilateral lower quadrant on palpation.Patient denies fever,chills,chest pain,palpitation and shortness of breath. Vital signs temperature 98.8, heart rate 83, blood pressure 144/68 saturation 99% on room air. Labs: WBC 12 with negative left shift of neutrophils 84, hemoglobin 12, hematocrit 37, platelet count 253. BUN 41, creatinine 1.4, GFR 38 glucose 252 calcium 10.4 troponin 17 lipase 44. EKG result revealed sinus rhythm heart rate 88 probable anterior infarct, old with atrial premature complexes. CT abdomen and pelvis result revealed diverticulosis. No ascites is seen. Mild mesenteric fat stranding is seen adjacent to the pancreatic head and duodenum may be related to duodenum nidus versus pancreatitis. REVIEW OF SYSTEMS CONSTITUTIONAL: Denies fevers, chills, or night sweats. No unintentional weight loss reported. NEUROLOGICAL: Denies headache, amaurosis fugax, motor weakness, sensory deficit, vertigo/spinning sensation, gait abnormalities, or tremors. ENT: No hearing loss, otalgia, otorrhea, rhinitis, rhinorrhea, hoarseness, or sore throat. CARDIOVASCULAR: Denies any exertional angina, dyspnea on exertion, orthopnea, paroxysmal nocturnal dyspnea, palpitations, life-threatening arrhythmias, claudication. PULMONARY: Denies any shortness of breath, cough, phlegm/sputum, hemoptysis, pleuritic chest pain. SLEEP: Denies morning headaches, daytime somnolence or napping. Denies difficulty falling asleep, staying asleep, waking from sleep. Denies knowledge of snoring. GASTROINTESTINAL: Mid abdomen and bilateral lower quadrant pain, nausea and vomiting x2 Denies any type of dysphagia to either liquids or solids. Denies , pyrosis, early satiety, diarrhea, constipation, or changes in stool consistency or caliber. Denies coffee-ground emesis, hematemesis, hematochezia, or melanotic stools. GENITOURINARY: Denies frequency, urgency, nocturia, hematuria or incontinence (Storage/Irritative symptoms.) Low urinary stream, straining to void, urinary intermittency or hesitancy, splitting of the voiding stream, terminal dribbling. ENDOCRINOLOGIC: Denies polyuria, polydipsia, polyphagia or heat/cold intolerances. HEMATOLOGIC: Denies thrombophilia/previous clots, or coagulopathy/bleeding disorders. ONCOLOGIC: Denies personal history of malignancy. DERMATOLOGIC: Denies rashes or pruritus. PSYCHIATRIC: Denies any suicidal or homicidal ideation. Denies hallucinations. PAST MEDICAL HISTORY: [ Stroke with left-sided paralysis Hypertension , hyperlipidemia, CKD, diabetes, glaucoma, obesity, severe aortic stenosis with TAVR and nonobstructive coronary artery disease ] PAST SURGICAL HISTORY: [ TAVR , hysterectomy, cholecystectomy, right shoulder surgery and bilateral knee replacement ] PAST SOCIAL HISTORY: [Patient lives with daughter. Patient denies alcohol tobacco and recreational drug use ] FAMILY HISTORY: [Hypertension, diabetes, cardiovascular disease, Alzheimer's disease, stroke, cardiovascular disease, asthma and cancer. ] Coded Allergies: codeine (Verified Allergy, Unknown, RASH, 07/16/14) piperacillin (Verified Adverse Reaction, Severe, 12/28/18) pt c/o pain to both flank ,legs with numbness tazobactam (Verified Adverse Reaction, Severe, 12/28/18) pt c/o pain to both flank ,legs with numbness levofloxacin (Verified Adverse Reaction, Unknown, muscle pain, 12/28/18) PHYSICAL EXAM GENERAL APPEARANCE: The patient is awake, alert, and oriented, in no acute car diopulmonary distress. NEUROLOGICAL: Cranial nerves II-XII grossly intact. Motor is 5/5 in bilateral upper and lower extremities proximal to distal. No sensory deficits. HEENT: Face is symmetric. Pupils are equal and reactive. Extraocular movements are intact. NECK: Supple. No JVD. No thyromegaly. No submental, submandibular, pre- /postauricular, occipital or supraclavicular lymphadenopathy. CHEST: Normal chest expansion. No Telemetry. LUNGS: Absence of any rales, rhonchi or any wheezing. CARDIOVASCULAR: Regular. S1 and S2 normal. No appreciable rubs, murmurs or gallops. ABDOMEN: tenderness around mid abdomen and bilateral lower quadrant on palpation Soft and nondistended. There is no rebound, voluntary guarding, or rigidity. : Deferred. No Vaughn. EXTREMITIES: Non-edematous and not cyanotic. No clubbing. Good capillary refill. SKIN: No skin breakdown. Vital Sign (Last 24 Hours) 06/12/24 12:38 Temp 98.8 Pulse 83 Resp 16 B/P (MAP) 180/80 Pulse Ox 99 O2 Delivery Room Air* O2 Flow Rate 0 FiO2 21 LABS: Laboratory: Test 06/12/24 12:56 Range/Units White Blood Count 12.6 H 4.8-10.8 K/uL Red Blood Count 4.11 4.00-5.50 MIL/uL Hemoglobin 12.1 12.0-16.0 g/dL Hematocrit 37.2 36-48 % Mean Corpuscular Volume 90.5 79-99 fL Mean Corpuscular Hemoglobin 29.4 27.0-33.0 pg Mean Corpuscular Hemoglobin Concent 32.5 32.0-36.0 g/dL Red Cell Distribution Width 13.3 11.0-15.5 % Platelet Count 253 130-400 K/uL Mean Platelet Volume 9.8 7.5-10.5 fL Immature Granulocyte % (Auto) 0.5 0-1 % Neutrophils (%) (Auto) 84.5 H 40.0-77.0 % Lymphocytes (%) (Auto) 11.3 L 21.0-51.0 % Monocytes (%) (Auto) 2.9 L 3.0-13.0 % Eosinophils (%) (Auto) 0.2 0.0-8.0 % Basophils (%) (Auto) 0.6 0.0-5.0 % Neutrophils # (Auto) 10.6 H 1.8-7.7 K/uL Lymphocytes # (Auto) 1.4 1.0-4.8 K/uL Monocytes # (Auto) 0.4 0.1-1.0 K/uL Eosinophils # (Auto) 0.02 0.00-0.70 K/uL Basophils # (Auto) 0.07 0.00-0.20 K/uL Absolute Immature Granulocyte (auto 0.06 0-1 K/uL Nucleated Red Blood Cells 0.0 0.0-0.19 % Sodium Level 139 136-145 mmol/L Potassium Level 5.1 3.5-5.1 mmol/L Chloride Level 105 101-111 mmol/L Carbon Dioxide Level 22 21-32 mmol/L Blood Urea Nitrogen 41 H 7-18 mg/dL Creatinine 1.4 H 0.5-1.0 mg/dL Glomerular Filtration Rate Calc 38 >90 mL/min Random Glucose 252 H 70-105 mg/dL Total Calcium 10.4 H 8.5-10.1 mg/dL Troponin I High Sensitivity 17 4-50 ng/L Lipase 44 16-77 U/L Current Medications Medications (Trade) Dose Ordered Sig/David Route PRN Reason Start Time Stop Time Status Last Admin Dose Admin Hydralazine HCl (APRESOLine 20MG INJ) 10 mg ONCE IV 06/12/24 16:30 06/12/24 20:30 06/12/24 16:35 10 MG Pantoprazole Sodium (PROTonix 40MG INJ) 40 mg DAILY IVP 06/13/24 09:00 07/13/24 08:59 Pantoprazole Sodium (PROTonix 40MG INJ) 40 mg ONCE IVP 06/12/24 18:00 06/12/24 18:58 DC Sodium Chloride 1,000 ml @ 75 mls/hr [id number] IV 06/12/24 19:30 07/12/24 19:29 DIAGNOSTICS / RADIOLOGY: [ ] ASSESSMENT: Intractable nausea and vomiting POA Acute colitis POA Acute kidney injury POA Uncontrolled diabetes POA Uncontrolled hypertension POA Diverticulosis POA Morbid obesity POA History of stroke with left-sided paralysis POA PLAN We will admit patient in medical surgical floor We will keep patient nothing by mouth We will start NS @ 75 ml / hr and re evaluate We will start Protonix 40 mg IV daily for GI prophylaxis We will replace electrolytes as needed per protocol We will start on insulin sliding scale AC & HS with hypoglycemia protocol We will add prn medication for fever,pain,cough , nausea and vomiting We will reconcile home meds once medlist available We will request urinalysis We will request labs in am Further orders to follow depending on above results Case discussed with attending physician and came up with above treatment and plan of care. ADVANCED CARE PLANNING 1. Which of the following were discussed? Hospice Care - No Therapeutic options - Yes Advance Directives - No Other discussions - 2. Discussed with who? Patient 3. Voluntary nature of this service was explained to the patient? Yes 4. Amount of time spent - __20 5. Reviewed by Physician? (if this service was performed by NPP) Yes Patient seen and examined by me. Agree with note by CREDIT CHECKER SEE ADDITIONAL ORDERS PER CHART DISCUSSED WITH NURSING STAFF MAHENDRA KELLY ENGRAVER TIRE MOLD Jun 12, 2024 20:17
[2024-06-12] MEDS ORDERED: PoTASSium chl 10% ELIXIR 20MEQ 20 MEQ/15 ML UDCUP PO PRN (20:30)
[2024-06-12] MEDS ORDERED: PoTASSium chloRIDE 10MEQ/100ML 100 ML IV PRN (20:30)
[2024-06-12] MEDS ORDERED: DEXTROSE 50%-WATER 50 ML DISP.SYRIN IV PRN (20:30)
[2024-06-12] MEDS ORDERED: GLUCAGON 1MG KIT 1 MG ML IM PRN (20:30)
[2024-06-12] MEDS ORDERED: morPHINE 2 MG SYG IVP PRN (20:30)
[2024-06-12] MEDS ORDERED: PoTASSium chloRIDE 20MEQ ER 20 MEQ ERTAB PO PRN (20:30)
[2024-06-12] MEDS ORDERED: hydrALAZine 20MG/ML VIAL IV PRN (21:30)
[2024-06-12 22:00] VITALS: O2SAT 97
[2024-06-12] MEDS: INSULIN humuLIN R 100 UNIT/ML 3ML SQ SCH (22:00)
[2024-06-12] MEDS ORDERED: ATOR40TA69 PO (23:30)
[2024-06-12] MEDS ORDERED: AMLO-258 PO (23:30)
[2024-06-12] MEDS ORDERED: PANT40TA54 PO (23:30)
[2024-06-12] MEDS ORDERED: LINA5TAB PO (23:30)
[2024-06-12] MEDS ORDERED: TIZA-194 PO (23:34)
[2024-06-12] MEDS ORDERED: LOSA100T59 PO (23:35)
[2024-06-12] MEDS ORDERED: GABA-529 PO (23:36)
[2024-06-12] MEDS ORDERED: METO-408 PO (23:37)
[2024-06-13 06:00] LABS: BASOPHILS # (AUTO) 0.04 K/uL (0.00-0.20); BASOPHILS % (AUTO) 0.4 % (0.0-5.0); EOSINOPHILS # (AUTO) 0.07 K/uL (0.00-0.70); EOSINOPHILS % (AUTO) 0.7 % (0.0-8.0); HEMATOCRIT 30.2 % (36-48); IMMATURE GRANULOCYTE ABSOLUTE 0.06 K/uL (0-1); LYMPHOCYTES # (AUTO) 2.7 K/uL (1.0-4.8); LYMPHOCYTES % (AUTO) 25.6 % (21.0-51.0); MEAN CORPUSCULAR HEMOGLOBIN 29.5 pg (27.0-33.0); MEAN CORPUSCULAR HGB CONC 32.5 g/dL (32.0-36.0); MONOCYTES # (AUTO) 0.7 K/uL (0.1-1.0); NEUTROPHILS # (AUTO) 6.9 K/uL (1.8-7.7); NEUTROPHILS % (AUTO) 65.7 % (40.0-77.0); PLATELET COUNT (AUTO) 236 K/uL (130-400); RED BLOOD CELL COUNT(AUTO) 3.32 MIL/uL (4.00-5.50); RED CELL DISTRIBUTION WIDTH 13.7 % (11.0-15.5); WHITE BLOOD COUNT (AUTO) 10.5 K/uL (4.8-10.8)
[2024-06-13 06:17] LABS: ALBUMIN 2.8 g/dL (3.5-5.0); BILIRUBIN,DIRECT 0.2 mg/dL (0.0-0.3); BILIRUBIN,TOTAL 0.6 mg/dL (0.2-1.0); CREATININE 1.2 mg/dL (0.5-1.0); MAGNESIUM 1.8 mg/dL (1.80-2.40); POTASSIUM 4.4 mmol/L (3.5-5.1)
[2024-06-13 07:20] LABS: ERYTHROCYTE SEDIMENTATION RATE 54 MM/HR (0-30)
[2024-06-13 08:00] VITALS: BP 130/63; PULSE 76; RESP 18; TEMP 98
[2024-06-13] MEDS: 0.9%NACL 1000ML 1,000 ML IV SCH (08:50)
[2024-06-13] MEDS: PANTOPrazole 40 MG/VIAL IVP SCH (08:59)
[2024-06-13] MEDS: MAGNESIUM 2GM PREMIX 50ML 50 ML IV PRN (08:59)
[2024-06-13] MEDS ORDERED: PoTASSium chloRIDE 10MEQ SR 10 MEQ/TAB TAB.SR.24H PO PRN (10:00)
[2024-06-13 10:57] VITALS: O2SAT 97
[2024-06-13 12:00] VITALS: BP 160/73; PULSE 83; RESP 18; TEMP 97.9
--- NOTE | 2024-06-13 12:17 | NUR ---
DCP: HOME SW met with pt and her daughter Francine Grimaldo [phone] at bedside. Pt states she lives with her , 2 daughters and a son. Pt has a provider 9-2 M-F and 11-1 on Sat. Provider assists pt with bathing dressing grooming, home management, laundry, meals and transportation. Pt has a walker, w/c, shower ivan and bedside commode. [facility] for outpt PT, they provide transportation to treatments. PCP is Antonia Sebastian, and uses [facility] for rx. Per p, she will return home with current services. Family to transport [place] Addendum: 06/13/24 at 1222 by MISTY DE PAZ Amended: Links added.
--- NOTE | 2024-06-13 15:10 | NUR ---
D/C INSTRUCTIONS PROVIDED TO PATIENT AND DAUGHTER AND ACKNOWLEDGED. IV REMOVED
== END 2024-06-13 15:50 | disposition home or self-care (01) ==
LOC: EDH 12:07 → INTOOBSV 18:33 → EDHIP 18:33 → 3DH 20:21
PROVIDERS: ADMIT Hospitalist; ATTEND Hospitalist
DX: K52.9 Noninfective gastroenteritis and colitis, unspecified (principal); N17.9 Acute kidney failure, unspecified; E11.65 Type 2 diabetes mellitus with hyperglycemia; K57.30 Diverticulosis of large intestine without perforation or abscess without bleeding; E66.01 Morbid (severe) obesity due to excess calories; I12.9 Hypertensive chronic kidney disease with stage 1 through stage 4 chronic kidney disease, or unspecified chronic kidney disease; E11.22 Type 2 diabetes mellitus with diabetic chronic kidney disease; N18.9 Chronic kidney disease, unspecified; I25.10 Atherosclerotic heart disease of native coronary artery without angina pectoris; I35.0 Nonrheumatic aortic (valve) stenosis; E78.00 Pure hypercholesterolemia, unspecified; Z88.5 Allergy status to narcotic agent; Z88.8 Allergy status to other drugs, medicaments and biological substances; Z90.710 Acquired absence of both cervix and uterus; Z90.49 Acquired absence of other specified parts of digestive tract; Z68.39 Body mass index [BMI] 39.0-39.9, adult; Z95.2 Presence of prosthetic heart valve; Z96.653 Presence of artificial knee joint, bilateral; Z86.73 Personal history of transient ischemic attack (TIA), and cerebral infarction without residual deficits
CPT/HCPCS: 99285; 96361 ×2; 74176; 96375 ×2; 96376 ×2; 84484; 80048 ×2; 83690; 85025 ×2; 36415 ×2; 93005; 96365; 96366; 80076; 83735; 85651; 82948 ×2; J1885; G0378; J7030; J0360; J2405 ×2; J2470 ×2; J3475; 96374